=== PATIENT | female | born 1990 | race Two or more races ===

== ENCOUNTER → 2016-04-29 | Outpatient (REF) | payer BC, OTHER ==
[2016-04-29 14:11] LABS: BASO % 0.4 % (0.0-1.0); EOS # 0.4 K/mm3 (0.0-0.50); EOS % 4.1 % (0.0-3.0); LYMPH % 21.4 % (24.0-44.0); MEAN CORPUSCULAR HEMOGLOBIN 26.4 pg (27.0-33.0); MEAN CORPUSCULAR HGB CONC 32.2 g/dl (32.0-36.5); MONO # 0.6 K/mm3 (0.0-0.8); MONO % 6.9 % (0.0-5.0); NEUTROPHILS # 5.9 K/mm3 (1.8-7.7); NEUTROPHILS % 65.9 % (36.0-66.0); RED CELL DISTRIBUTION WIDTH 13.6 % (11.5-14.5)
== END ==
LOC: M LABNEURO 13:38
PROVIDERS: ATTEND Obstetrics & Gynecology
DX: Z34.82 Encounter for supervision of other normal pregnancy, second trimester (principal); Z36 Encounter for antenatal screening of mother; Z3A.00 Weeks of gestation of pregnancy not specified

== ENCOUNTER 2016-07-08 08:33 | Outpatient (CLI) | payer BC, OTHER ==
[~2016-07-08] VITALS: Ht 165.1 cm; Wt 94.0 kg
[2016-07-08 08:50] VITALS: BP 133/85
--- NOTE | 2016-07-08 10:07 | IPN ---
DATE OF SERVICE: 07/08/2016 REASON FOR EVALUATION: Contractions. HISTORY OF PRESENT ILLNESS: This patient is a 25-year-old 4, para 0 who presents at 36 weeks, 6 days estimated gestational age (EGA) with complaints of contractions. She reports having abdominal discomfort earlier in the morning. She was able to rest, went to sleep, woke up and they continued to occur and she presented to labor and delivery at [facility]. She reports some decreased movement. Denies any vaginal bleeding or leakage of fluid. Her course has been uncomplicated. She initiated care in her first trimester and has been appropriate throughout. She receives her care at [facility]. PAST MEDICAL HISTORY: None. PAST SURGICAL HISTORY: Dilatation and curettage. PAST OBSTETRICAL HISTORY: She is a 4. MEDICATIONS: Includes vitamins. ALLERGIES: She has allergies to: 1. PENICILLIN. SOCIAL HISTORY: She denies any alcohol, tobacco or drug use during her . PHYSICAL EXAMINATION: Her vital signs are stable. She is afebrile. She has a category 1 heart rate tracing with contraction on tocometer. GENERAL APPEARANCE: Well appearing, no acute distress. ABDOMEN: Soft, gravid, nontender. CERVICAL EXAM: She was 1 cm dilated, 25% effaced. ASSESSMENT: 1. This patient is a 25-year-old 4, para 0 at 36 weeks, 6 days with contractions, not in active labor. 2. Reassuring status. PLAN: 1. The patient was discharged home with labor precautions and instructed in kick counts. 2. She was instructed to contact her primary sod farmer at a [facility] for further instructions and evaluation.
== END 2016-07-08 09:40 | disposition home or self-care (01) ==
LOC: M LDO 08:33
PROVIDERS: ATTEND Obstetrics & Gynecology
DX: O47.03 False labor before 37 completed weeks of gestation, third trimester (principal); Z3A.36 36 weeks gestation of pregnancy; Z88.0 Allergy status to penicillin

== ENCOUNTER 2016-07-18 12:06 | Outpatient (CLI) | payer BC, OTHER ==
[~2016-07-18] VITALS: Ht 167.6 cm; Wt 94.0 kg
[2016-07-18] MEDS ORDERED: PRENTAB9 PO (12:14)
[2016-07-18] MEDS ORDERED: IRON65TA PO (12:14)
[2016-07-18] MEDS ORDERED: PROMETHAZINE INJ 25 MG/ML VIAL (J2550) IV PRN (14:15)
[2016-07-18] MEDS ORDERED: BUTORPHANOL 2 MG/ML INJ (J0595) IV PRN (14:15)
[2016-07-18] MEDS ORDERED: MORPHINE 10 MG/ML 1ML VIAL IV ONE (17:00)
[2016-07-18] MEDS ORDERED: MORPHINE 10 MG/ML 1ML VIAL SC ONE (17:00)
--- NOTE | 2016-07-19 01:13 | IPN ---
DATE OF SERVICE: 07/18/2016 CHIEF COMPLAINT: Contractions. HISTORY OF PRESENT ILLNESS: Mrs. Walter is a 25-year-old 4, para 0, who presents at 40 weeks 0 days estimated gestational age with an estimated due date (JAY) of 07/18/2016, with complaints of contractions. She reports contractions that started earlier this morning, but have increased in frequency, as well as intensity. She denies any vaginal bleeding, leakage of fluid. Reports active movement. She receives her care at a [facility] and she initiated her care in her first trimester and has been appropriate throughout. PAST MEDICAL HISTORY: None. PAST SURGICAL HISTORY: Dilation and curettage. PAST OBSTETRICAL HISTORY: She is a 4, para 0. MEDICATIONS: Include vitamins. ALLERGIES: She has allergies to PENICILLIN. SOCIAL HISTORY: Denies any alcohol, tobacco, or drug use during her . PHYSICAL EXAMINATION: VITAL SIGNS: Stable. She is afebrile. She has a category 1 heart rate tracing with contractions approximately every 4-5 minutes. GENERAL APPEARANCE: Well appearing, no acute distress. ABDOMEN: Gravid and nontender. CERVICAL EXAM: She is 2 cm dilated, 50% effaced, -2 station. The patient is reexamined approximately 4 hours later with a cervical exam that was unchanged and this was after therapeutic rest with morphine and Phenergan. ASSESSMENT: 1. This patient is a 25-year-old 4, para 0 at 40 weeks 0 days estimated gestational age with contractions, likely late in labor, but not active labor. 2. Reassuring status. PLAN: 1. I have discussed patient returning for reevaluation if contractions continue or water breaks within the next 2-3 hours. She has also been instructed on kick counts. 2. She will followup with her primary senior caregiver at [facility] early next week.
== END 2016-07-18 20:15 | disposition home or self-care (01) ==
LOC: M LDO 12:06
PROVIDERS: ATTEND Obstetrics & Gynecology
DX: O47.1 False labor at or after 37 completed weeks of gestation (principal); Z3A.40 40 weeks gestation of pregnancy; Z88.0 Allergy status to penicillin
CPT/HCPCS: 59025; 96372; 96374; J0595

== ENCOUNTER 2016-07-19 18:54 | Inpatient (IN) | payer BC, OTHER ==
[2016-07-19] VITALS (19 sets, daily range): BP systolic 97–145; BP diastolic 51–95
[~2016-07-19] VITALS: Ht 167.6 cm; Wt 94.0 kg
[~2016-07-19 18:54] MED LIST: IRON65TA PO; PRENTAB9 PO
[2016-07-19 20:10] LABS: MEAN CORPUSCULAR HEMOGLOBIN 22.5 pg (27.0-33.0); MEAN CORPUSCULAR HGB CONC 30.9 g/dl (32.0-36.5); MEAN CORPUSCULAR VOLUME 72.8 fl (80.0-96.0); RED CELL DISTRIBUTION WIDTH 16.9 % (11.5-14.5); WHITE BLOOD COUNT 21.1 K/mm3 (4.0-10.0)
[2016-07-19 20:30] LABS: ALT/SGPT 34 U/L (12-78); AST/SGOT 26 U/L (15-37); BILIRUBIN,TOTAL 0.4 MG/DL (0.2-1.0); CREATININE FOR GFR 0.69 MG/DL (0.55-1.02); GLOMERULAR FILTRATION RATE > 60.0 (>60); URIC ACID 3.6 MG/DL (2.6-6.0)
[2016-07-19] MEDS ORDERED: FENTANYL 2MCG/ML ROPIVACAINE 0.2% IN 0.9% NACL 200ML IVBAG As Ordered ONE (20:38)
[2016-07-19] MEDS ORDERED: FENTANYL/ROPIVACAINE/NACL BAG 200 ML EPIDURAL SCH (21:25)
[2016-07-19] MEDS ORDERED: EPIDURAL/PCA KEYS XX PRN (21:25)
[2016-07-19] MEDS ORDERED: NALOXONE INJ 0.4 MG/1 ML VIAL (J2310) IV PRN (21:25)
[2016-07-19] MEDS ORDERED: ePHEDrine SULFATE 25 MG/5 ML(5MG/ML) SYRINGE IV PRN (21:25)
[2016-07-19] MEDS ORDERED: diphenhydrAMINE INJ 50MG/ML VIAL (J1200) IV PRN (21:25)
[2016-07-19] MEDS ORDERED: EPIDURAL COMMENT XX SCH (21:25)
[2016-07-19] MEDS ORDERED: REFRIGERATOR IV KEYS XX PRN (21:25)
[2016-07-19] MEDS ORDERED: LACTATED RINGER'S 1000 ML IV PRN (21:25)
[2016-07-19] MEDS ORDERED: ONDANSETRON 4MG/2ML VIAL (J2405) IV PRN (21:25)
[2016-07-19] MEDS ORDERED: OXYTOCIN 30 UNITS IN 0.9% NaCl 500ML IV BAG (J2590) As Ordered ONE (23:16)
[2016-07-19] MEDS ORDERED: OXYTOCIN DRIP 30 UNITS in APPROPRIATE DILUENT 1 EA IV SCH (23:51)
[2016-07-20] MEDS ORDERED: ACETAMINOPHEN 500 MG TAB PO PRN
[2016-07-20] MEDS ORDERED: DOCUSATE SODIUM 100 MG CAP PO PRN
[2016-07-20] MEDS ORDERED: MEASLES,MUMPS,RUBELLA VACCINE INJ (MMR-II) (90707) SC SCH
[2016-07-20] MEDS ORDERED: METHYLERGONOVINE MALEATE 0.2 MG TAB PO PRN
[2016-07-20] MEDS ORDERED: DIBUCAINE 1% OINTMENT 30GM TOP PRN
[2016-07-20] MEDS ORDERED: RHOGAM 300 MCG (1500 IU) INJ (J2790) IM SCH
[2016-07-20] MEDS ORDERED: ANUSOL HC CREAM 30GM TOP PRN
[2016-07-20] MEDS ORDERED: MOM 30ML SUSPENSION UDC PO PRN
[2016-07-20] MEDS ORDERED: IBUPROFEN 800 MG TAB PO PRN
--- NOTE | 2016-07-20 00:02 | HPE ---
DATE OF ADMISSION: 07/19/2016 REASON FOR ADMISSION: Labor. HISTORY OF PRESENT ILLNESS: Mrs. Walter is a 25-year-old 4, para 0, who presents at 40 weeks with an estimated due date of 07/18/2016, with complaints of contractions. She reports contractions that started actually yesterday that were irregular, but now have been more frequent and increased in intensity. She denies any vaginal bleeding or leakage of fluid. She reports active movement. She receives her care at [facility] and has initiated her care in her first trimester and has been appropriate throughout. PAST MEDICAL HISTORY: None. PAST SURGICAL HISTORY: Dilation and curettage. PAST OBSTETRICAL HISTORY: She is 4, para 0. MEDICATIONS: Include vitamins. ALLERGIES: She has allergies to PENICILLIN. SOCIAL HISTORY: She denies any alcohol, tobacco, or drug use during her . PHYSICAL EXAMINATION: VITAL SIGNS: Stable. She is afebrile. She has a category 1 heart rate tracing. Contractions approximately every 3-5 minutes on tachometer. GENERAL APPEARANCE: Well appearing, no acute distress. LUNGS: Clear to auscultation bilaterally. CARDIOVASCULAR: Heart is regular rate and rhythm. ABDOMEN: Soft, gravid, nontender. Estimated weight (EFW) 3700 grams. CERVICAL EXAM: She was 5 cm dilated, completely effaced, -2 station. ASSESSMENT: 1. This patient is a 25-year-old 4 who is at 40 weeks 1 day estimated gestational age in active labor. 2. Reassuring status. PLAN: 1. Admit to labor and delivery. CBC, RPR, type and screen. 2. Patient is a good candidate for an epidural. 3. Anticipate spontaneous vaginal delivery.
--- NOTE | 2016-07-20 00:34 | DN ---
DATE OF DELIVERY: 07/19/2016 TIME OF : 2319 GENDER: Male. SCORES: 8 and 9. WEIGHT: 3544 grams or 7 pounds 13 ounces. LACERATIONS: Left labial abrasion. ESTIMATED BLOOD LOSS: 300 mL. ANESTHESIA: Epidural. COUNTS: 5 laparotomy sponges accounted for prior to and after delivery. One sharp removed from the delivery field. DELIVERY NOTE: On 07/19/2016, Mrs. Walter, a 25-year-old 4, now para 1 had a spontaneous vaginal delivery of a liveborn male at 2319, scores 8 and 9, weight was 7 pounds 13 ounces or 3544 grams. Head was delivered occiput anterior (OA) over an intact perineum. There was a loose nuchal cord which was manually reduced followed by delivery of right anterior shoulder, left posterior shoulder and corpus. was handed to mother with a good cry. Cord was then clamped times two and was cut by the father of the baby under my direction. Cord blood was obtained. Placenta was then drained and delivered grossly intact. A premixed bag of 500 mL of normal saline with 30 units of Pitocin was bolused along with uterine massage until the uterus was firm. Upon inspection, the cervix, vagina, and perineum were grossly intact, hemostatic. Mother and baby recovered in stable condition. The couple has decided to name their son
[2016-07-20 02:15] VITALS: BP 124/63
[2016-07-20 05:31] VITALS: BP 114/61
[2016-07-20] MEDS: PRENATAL VITAMIN TAB PO SCH (08:11)
[2016-07-20 18:06] VITALS: BP 135/84
[2016-07-21 06:10] VITALS: BP 137/87
[2016-07-21] MEDS ORDERED: ACET50TA PO (07:17)
[2016-07-21] MEDS ORDERED: IBUP-1114 PO (07:17)
[2016-07-21] MEDS: PRENATAL VITAMIN TAB PO SCH (09:00)
== END 2016-07-21 10:30 | disposition home or self-care (01) | DRG 560 ==
LOC: M LDO 18:54 → M LDI 19:43 → M OBS 07-20 01:14
PROVIDERS: ADMIT Obstetrics & Gynecology; ATTEND Obstetrics & Gynecology
PROC: 10E0XZZ Delivery of Products of Conception, External Approach (ICD-10-PCS; principal; 2016-07-19)
DX: O48.0 Post-term pregnancy (principal); Z37.0 Single live birth; Z3A.40 40 weeks gestation of pregnancy

== ENCOUNTER → 2016-09-28 | Outpatient (REF) | payer OTHER ==
[~2016-09-28] MED LIST changes: +ACET50TA PO; +IBUP-1114 PO
[2016-09-28 12:43] LABS: MEAN CORPUSCULAR HEMOGLOBIN 24.6 pg (27.0-33.0); MEAN CORPUSCULAR HGB CONC 31.2 g/dl (32.0-36.5); RED CELL DISTRIBUTION WIDTH 17.8 % (11.5-14.5); WHITE BLOOD COUNT 7.6 K/mm3 (4.0-10.0)
[2016-09-28 13:26] LABS: ALBUMIN 3.5 GM/DL (3.2-5.2); ALBUMIN/GLOBULIN RATIO 1.06 (1.00-1.93); ALKALINE PHOSPHATASE 91 U/L (45-117); ALT/SGPT 26 U/L (12-78); ANION GAP 7 MEQ/L (8-16); AST/SGOT 15 U/L (15-37); BILIRUBIN,TOTAL 0.3 MG/DL (0.2-1.0); BLOOD UREA NITROGEN 8 MG/DL (7-18); CALCIUM LEVEL 8.5 MG/DL (8.5-10.1); CARBON DIOXIDE LEVEL 23 MEQ/L (21-32); CHLORIDE LEVEL 108 MEQ/L (98-107); CHOLESTEROL LEVEL 125 MG/DL (<200); CREATININE FOR GFR 0.81 MG/DL (0.55-1.02); GLOMERULAR FILTRATION RATE > 60.0 (>60); GLUCOSE, FASTING 81 MG/DL (70-105); SODIUM LEVEL 138 MEQ/L (136-145); TOTAL PROTEIN 6.8 GM/DL (6.4-8.2); TRIGLYCERIDES LEVEL 51 MG/DL (<150)
== END ==
LOC: M LAB REF 11:49
PROVIDERS: ATTEND Family Medicine
DX: D64.9 Anemia, unspecified (principal); E03.9 Hypothyroidism, unspecified

== ENCOUNTER → 2016-10-30 | Outpatient (REF) | payer BC, OTHER, SELFPAY | LOC: M LAB REF 15:41 | PROVIDERS: ATTEND Family Medicine | DX: Z92.29 Personal history of other drug therapy (principal) ==

== ENCOUNTER → 2017-04-30 | Outpatient (REF) | payer OTHER ==
[2017-04-30 17:18] LABS: CHLAMYDIA DNA AMPLIFICATION NEGATIVE (NEGATIVE); GC DNA AMPLIFICATION NEGATIVE (NEGATIVE)
[2017-05-03 12:22] LABS: HIV 1&2 SCREEN CENTAUR NEGATIVE (NEGATIVE)
== END ==
LOC: M SFHCPLAZ 15:07
DX: Z11.3 Encounter for screening for infections with a predominantly sexual mode of transmission (principal)

== ENCOUNTER → 2018-04-12 | Outpatient (REF) | payer OTHER ==
[~2018-04-12] MED LIST changes: -ACET50TA PO; +MAPA500T2 PO
[2018-04-12 18:40] LABS: HEMATOCRIT 40.1 % (36.0-47.0); HEMOGLOBIN 12.9 g/dl (12.0-15.5); MEAN CORPUSCULAR HEMOGLOBIN 27.7 pg (27.0-33.0); MEAN CORPUSCULAR HGB CONC 32.2 g/dl (32.0-36.5); MEAN CORPUSCULAR VOLUME 86.2 fl (80.0-96.0); PLATELET COUNT, AUTOMATED 322 10^3/uL (150-450); RED BLOOD COUNT 4.65 10^6/uL (4.00-5.40); WHITE BLOOD COUNT 9.4 10^3/uL (4.0-10.0)
[2018-04-12 19:00] LABS: ALBUMIN 4.4 GM/DL (3.2-5.2); ALT/SGPT 23 U/L (12-78); BILIRUBIN,TOTAL 0.6 MG/DL (0.2-1.0); BLOOD UREA NITROGEN 7 MG/DL (7-18); CALCIUM LEVEL 8.9 MG/DL (8.5-10.1); CARBON DIOXIDE LEVEL 24 MEQ/L (21-32); CHLORIDE LEVEL 107 MEQ/L (98-107); CREATININE FOR GFR 0.93 MG/DL (0.55-1.30); FERRITIN 6 NG/ML (8-252); GLOMERULAR FILTRATION RATE > 60.0 (>60); GLUCOSE, FASTING 82 MG/DL (70-100); IRON (FE) 54 UG/DL (50-170); LIPASE 171 U/L (73-393); PERCENT SATURATION 12.9 % (13.2-45.0); POTASSIUM SERUM 4.4 MEQ/L (3.5-5.1); SODIUM LEVEL 141 MEQ/L (136-145); TOTAL IRON BINDING CAPACITY 417 UG/DL (250-450); TOTAL PROTEIN 7.5 GM/DL (6.4-8.2)
[2018-04-12 19:36] LABS: CHLAMYDIA DNA AMPLIFICATION NEGATIVE (NEGATIVE); GC DNA AMPLIFICATION NEGATIVE (NEGATIVE)
[2018-04-12 21:09] LABS: CHLAMYDIA DNA AMPLIFICATION NEGATIVE (NEGATIVE); GC DNA AMPLIFICATION NEGATIVE (NEGATIVE)
[2018-04-13 10:50] LABS: HIV 1&2 SCREEN CENTAUR NEGATIVE (NEGATIVE)
== END ==
LOC: M SFHCPLAZ 15:29
PROVIDERS: ATTEND Family Medicine
DX: D50.9 Iron deficiency anemia, unspecified (principal); R19.7 Diarrhea, unspecified; Z11.3 Encounter for screening for infections with a predominantly sexual mode of transmission; Z12.4 Encounter for screening for malignant neoplasm of cervix

== ENCOUNTER → 2018-04-12 | Outpatient (REF) | payer OTHER | LOC: M SFHCPLAZ 18:57 | PROVIDERS: ATTEND Family Medicine | DX: Z12.4 Encounter for screening for malignant neoplasm of cervix (principal) ==

== ENCOUNTER 2019-01-17 14:35 | Emergency (ER) | payer OTHER, SELFPAY ==
[~2019-01-17] VITALS: Ht 167.6 cm; Wt 69.1 kg
[2019-01-17 14:36] VITALS: BP 126/83
[2019-01-17] MEDS ORDERED: AZITHROMYCIN 250 MG TAB PO ONE (15:00)
[2019-01-17] MEDS ORDERED: LIDOCAINE 1% SDV 5 ML VIAL DILUENT ONE (15:00)
[2019-01-17] MEDS ORDERED: cefTRIAXone SOD 250 MG VIAL (J0696) IM ONE (15:00)
== END 2019-01-17 15:45 | disposition home or self-care (01) ==
LOC: M ED 14:35
DX: Z20.2 Contact with and (suspected) exposure to infections with a predominantly sexual mode of transmission (principal); Z86.19 Personal history of other infectious and parasitic diseases
CPT/HCPCS: 96372; 99283; J0696

== ENCOUNTER 2019-05-22 12:16 | Inpatient (IN) | payer OTHER, SELFPAY ==
[~2019-05-22] VITALS: Ht 167.6 cm; Wt 60.1 kg
[~2019-05-22 12:16] MED LIST changes: +FOLIC ACID 1 MG TAB PO SCH; +MULTIVITAMINS/MINERALS THERAP 1 TAB PO SCH
[2019-05-22] MEDS ORDERED: NS 1,000 ML IV ONE (13:00)
[2019-05-22 13:37] LABS: BASO # 0.1 10^3/uL (0.0-0.2); BASO % 1.7 % (0.0-1.0); EOS # 0.1 10^3/uL (0.0-0.5); EOS % 1.2 % (0.0-3.0); HEMATOCRIT 36.6 % (36.0-47.0); HEMOGLOBIN 11.8 g/dl (12.0-15.5); LYMPH # 2.7 10^3/uL (1.5-5.0); LYMPH % 34.1 % (24.0-44.0); MEAN CORPUSCULAR HEMOGLOBIN 25.9 pg (27.0-33.0); MEAN CORPUSCULAR HGB CONC 32.2 g/dl (32.0-36.5); MEAN CORPUSCULAR VOLUME 80.3 fl (80.0-96.0); MONO # 0.9 10^3/uL (0.0-0.8); MONO % 11.2 % (0.0-5.0); NEUTROPHILS # 4.1 10^3/uL (1.5-8.5); NEUTROPHILS % 51.6 % (36.0-66.0); PLATELET COUNT, AUTOMATED 395 10^3/uL (150-450); RED BLOOD COUNT 4.56 10^6/uL (4.00-5.40)
[2019-05-22 14:02] LABS: HCG, SERUM QUALITATIVE NEGATIVE (NEGATIVE)
[2019-05-22 14:04] LABS: ALBUMIN 4.4 GM/DL (3.2-5.2); ALT/SGPT 27 U/L (12-78); BILIRUBIN,DIRECT 0.2 MG/DL (0.0-0.2); BILIRUBIN,TOTAL 0.6 MG/DL (0.2-1.0); BLOOD UREA NITROGEN 12 MG/DL (7-18); CALCIUM LEVEL 9.4 MG/DL (8.5-10.1); CARBON DIOXIDE LEVEL 23 MEQ/L (21-32); CHLORIDE LEVEL 105 MEQ/L (98-107); CREATININE FOR GFR 1.05 MG/DL (0.55-1.30); GLOMERULAR FILTRATION RATE > 60.0 (>60); GLUCOSE, FASTING 77 MG/DL (70-100); MAGNESIUM LEVEL 2.2 MG/DL (1.8-2.4); PHOSPHORUS LEVEL 4.4 MG/DL (2.5-4.9); POTASSIUM SERUM 3.9 MEQ/L (3.5-5.1); SODIUM LEVEL 137 MEQ/L (136-145); TOTAL PROTEIN 8.1 GM/DL (6.4-8.2)
--- NOTE | 2019-05-22 14:27 | REP ---
Portable chest, 02:14 p.m., single frontal view: Comparison is 06/07/2012. Lung newberry are hyperinflated but otherwise clear. Cardiac size is normal. The ady, mediastinum, skeletal structures are unremarkable. Impression: Hyperinflation, otherwise negative single frontal view of the chest. Electronically Signed by Flavio Hernández MD 05/22/2019 02:20 P
--- NOTE | 2019-05-22 14:33 | REP ---
CT of the brain without IV contrast: There are no comparisons. I suspect a small right frontal scalp contusion. This should be confirmed clinically. There is no subdural or epidural hematoma. There is no intraparenchymal or subarachnoid hemorrhage. There is no edema, mass effect or midline shift. Ventricles are normal size. The visualized paranasal sinuses and mastoid air cells are clear. Impression: Probable small right frontal scalp contusion. Otherwise, essentially negative CT study of the brain. Electronically Signed by Flavio Hernández MD 05/22/2019 02:24 P
--- NOTE | 2019-05-22 14:36 | REP ---
CT of the cervical spine without IV contrast: Vertebral body heights, interspacing alignment are normal. The facets are normally aligned. The prevertebral soft tissues are unremarkable. The skull base, C1-C2 are unremarkable. There are no posterior element fractures. Impression: There is no fracture or listhesis. Electronically Signed by Flavio Hernández MD 05/22/2019 02:27 P
[2019-05-22 15:03] LABS: AMPHETAMINES LEVEL URINE POSITIVE (NEGATIVE); BARBITURATES URINE NEGATIVE (NEGATIVE); BENZODIAZEPINES URINE NEGATIVE (NEGATIVE); CANNABINOIDS URINE POSITIVE (NEGATIVE); COCAINE METABOLITE URINE POSITIVE (NEGATIVE); METHADONE URINE NEGATIVE (NEGATIVE); OPIATES URINE NEGATIVE (NEGATIVE); PHENCYCLIDINE URINE NEGATIVE (NEGATIVE)
[2019-05-22] MEDS ORDERED: levETIRAcetam INJection 1,000 MG in D5W 100 ML IV ONE (15:30)
[2019-05-22] MEDS ORDERED: THIAMINE 100 MG TAB PO SCH (19:00)
[2019-05-22] MEDS ORDERED: LORazepam 2 MG TAB PO PRN (19:00)
--- NOTE | 2019-05-22 19:19 | HPEPDOC ---
[facility] Medical History & Physical Date of Admission May 22, 2019 Date of Service: May 22, 2019 Attending Physician: LAURA BOOTH MD History and Physical CHIEF COMPLAINT: seizures HISTORY OF PRESENT ILLNESS: Zeus Walter is a 28-year-old female with history of multi-drug abuse who presents with several seizures today witnessed by both family and EMS. Per the patient, she has been having seizures off-and-on since 2017, which she attributes to either hereditary disorder or her drug use. She reports that she usually has an aura before she has a seizure and does not remember much during the event, but usually wakes up confused afterwards. She does lose control of her bladder during these events. Most recently, on Wednesday05/20/2019 she was out with her friends and she admits to drinking almost 1 handle of tequila, snorting cocaine, and smoking excessive amounts of marijuana and crack. She states she has not slept in 72 hours. She is also not eaten this timeframe. In the ED, she is stabilized and she had been given 1000 mg of IV Keppra. PAST MEDICAL HISTORY: 1. Iron deficiency anemia 2. Anxiety/depression 3. HSV 2 4. Abnormal Pap smear in 2008 ASCUS PAST SURGICAL HISTORY: 1. D&C SOCIAL HISTORY: Current 1 pack per day smoker, smokes marijuana, snorts Cocaine, smokes crack FAMILY HISTORY: Remote family history of diabetes and sleep apnea in addition to questionable seizure disorders ALLERGIES: Please see below. REVIEW OF SYSTEMS: CONSTITUTIONAL: Feels well. No fever or chills HEENT: denies vision changes, no sinus problems, denies any trouble swallowing CARDIOVASCULAR: no palpitations RESPIRATORY: Denies any shortness of breath GENITOURINARY: No dysuria MUSCULOSKELETAL: Denies any joint/muscle pain GASTROINTESTINAL: Denies abdominal pain, no nausea/vomiting/diarrhea SKIN: No new rashes or lesions NEUROLOGICAL: No loss of sensation PSYCHIATRIC: Reports normal mood, no delusions or hallucinations ENDOCRINE: No hot/cold intolerance HEMATOLOGIC/LYMPHATIC: No easy bruising, no lumps/bumps ALLERGIC/IMMUNOLOGIC: No sinus symptoms HOME MEDICATIONS: Please see below. PHYSICAL EXAMINATION: VITAL SIGNS: Please see below. GENERAL APPEARANCE: Very talkative, speaking quickly changing subjects quite often, but pleasant and in no acute distress HEENT: EOMI, PERRLA, neck is supple with no thyromegaly or lymphadenopathy RESPIRATORY: Lungs are clear to auscultation bilaterally with no adventitious breath sounds appreciated CARDIOVASCULAR: no JVD, RRR,no murmurs/rubs/gallops ABDOMEN: Soft, nontender to palpation in all four quadrants, no masses/organomegaly EXTREMITIES: no clubbing, cyanosis or edema noted. There is an area of irritation on her right antecubital fossa from her IV NEUROLOGICAL: No obvious focal deficits PSYCHIATRIC: very talkative and tangential with pressured speech Skin: No rashes or ulcers. Multiple tattoos LN: No significant cervical or inguinal lymphadenopathy LABORATORY DATA: See below. IMAGING: CT HEAD: CT of the brain without IV contrast: There are no comparisons. I suspect a small right frontal scalp contusion. This should be confirmed clinically. There is no subdural or epidural hematoma. There is no intraparenchymal or subarachnoid hemorrhage. There is no edema, mass effect or midline shift. Ventricles are normal size. The visualized paranasal sinuses and mastoid air cells are clear. Impression: Probable small right frontal scalp contusion. Otherwise, essentially negative CT study of the brain. CXR: Portable chest, 02:14 p.m., single frontal view: Comparison is 06/07/2012. Lung newberry are hyperinflated but otherwise clear. Cardiac size is normal. The ady, mediastinum, skeletal structures are unremarkable. Impression: Hyperinflation, otherwise negative single frontal view of the chest. CERVICAL SPINE CT: CT of the cervical spine without IV contrast: Vertebral body heights, interspacing alignment are normal. The facets are normally aligned. The prevertebral soft tissues are unremarkable. The skull base, C1-C2 are unremarkable. There are no posterior element fractures. Impression: There is no fracture or listhesis. MICROBIOLOGY: Please see below. ASSESSMENT: This is a 28-year-old female with history of anxiety and depression who presents after several seizures in the setting of multi drug abuse. . She will be admitted to the medical surgical floor for close observation and seizure precautions. PLAN: 1. Seizures, likely secondary to drug use: -Patient was found to be positive on tox screen for amphetamines, cocaine, cannabinoids -Seizure precautions in place -S/p 1000 mg IV Keppra in ED. The patient will be resumed on 750 mg twice daily. -1L IVF NS in ED -Inpatient EEG ordered to r/o seizure disorder -Continuous telemetry in setting of possible acute intoxication with amphetamines and cocaine 2. Alcohol abuse: -[facility] protocol in place -Thiamine, Multivitamin, Folic acid 3. Tobacco abuse: -Nicotene patches while in hospital Dispo: Pending clinical improvement. Seizure precautions. Vital Signs Vital Signs Date Time Temp Pulse Resp B/P (MAP) Pulse Ox O2 Delivery O2 Flow Rate FiO2 05/22/19 18:30 99 18 105/63 (77) 100 Room Air 05/22/19 12:36 97.9 Laboratory Data Labs 24H Laboratory Tests 2 05/22/19 13:21: Immature Granulocyte % (Auto) 0.2, Neutrophils (%) (Auto) 51.6, Lymphocytes (%) (Auto) 34.1, Monocytes (%) (Auto) 11.2H, Eosinophils (%) (Auto) 1.2, Basophils (%) (Auto) 1.7H, Neutrophils # (Auto) 4.1, Lymphocytes # (Auto) 2.7, Monocytes # (Auto) 0.9H, Eosinophils # (Auto) 0.1, Basophils # (Auto) 0.1, Nucleated Red Blood Cells % (auto) 0.0, Anion Gap 9, Glomerular Filtration Rate > 60.0, Calcium Level 9.4, Phosphorus Level 4.4, Magnesium Level 2.2, Total Bilirubin 0.6, Direct Bilirubin 0.2, Aspartate Amino Transf (AST/SGOT) 31, Alanine Aminotransferase (ALT/SGPT) 27, Alkaline Phosphatase 73, Total Protein 8.1, Albumin 4.4, Albumin/Globulin Ratio 1.19, Human Chorionic Gonadotropin, Qual NEGATIVE 05/22/19 14:25: Urine Color YELLOW, Urine Appearance CLOUDYH, Urine pH 5.0, Urine Specific [place]agon 1.028, Urine Protein 1+H, Urine Glucose (UA) NEGATIVE, Urine Ketones TRACEH, Urine Blood NEGATIVE, Urine Nitrite NEGATIVE, Urine Bilirubin NEGATIVE, Urine Urobilinogen 0.2, Urine Leukocyte Esterase TRACEH, Urine WBC (Auto) 4H, Urine RBC (Auto) 2, Urine Hyaline Casts (Auto) 0, Urine Bacteria (Auto) 2+H, Urine Squamous Epithelial Cells 9, Urine Mucus (Auto) SMALL, Urine Sperm (Auto) , Urine Opiates Screen NEGATIVE, Urine Methadone Screen NEGATIVE, Urine Barbiturates Screen NEGATIVE, Urine Phencyclidine Screen NEGATIVE, Urine Amphetamines Screen POSITIVEH, Urine Benzodiazepines Screen NEGATIVE, Urine Cocaine Metabolite Screen POSITIVEH, Urine Cannabinoids Screen POSITIVEH CBC/BMP Laboratory Tests 05/22/19 13:21 Microbiology Microbiology 05/22/19 Urine Culture, Received Pending Home Medications No Active Prescriptions or Reported Meds Allergies Coded Allergies: Penicillins (Verified Allergy, Unknown, 05/22/19) A-FIB/CHADSVASC A-FIB History Current/History of A-Fib/PAF?: No GME ATTESTATION GME ATTESTATION My faculty preceptor for this patient encounter was physically present during the encounter and was fully available. All aspects of the patient interview, examination, medical decision making process, and medical care plan development were reviewed and approved by the faculty preceptor. The faculty preceptor is aware and concurs with the plan as stated in the body of this note and will attest to such by his/her cosignature. ATTENDING NOTE Patient was seen and examined by me this morning with the residents. Agree with the above assessment and plan VICKY GONZALEZ MD May 22, 2019 19:19 LAURA BOOTH MD May 25, 2019 12:53
[2019-05-22 19:29] VITALS: BP 106/68
--- NOTE | 2019-05-22 20:42 | ECGEPIP ---
[facility] - ED Test Date: 2019-05-22 Pat Name: STEPHAN MORENO Department: Room: - Gender: Female Glass Glazier: jennifer : 1990 Requested By: GLORY Horton Order Number: [id number] Reading MD: Vickie Rodriguez Measurements Intervals [place] Rate: 81 P: 80 MT: 159 QRS: 73 QRSD: 93 T: 58 QT: 395 QTc: 461 Interpretive Statements SINUS RHYTHM WITH MARKED SINUS ARRHYTHMIA PROLONGED QTC NO PRIOR Electronically Signed on 05-22-2019 20:41:48 EDT by Vickie Rodriguez
[2019-05-23] MEDS ORDERED: levETIRAcetam 250MG TABLET (KEPPRA) PO SCH (06:00)
[2019-05-23] MEDS ORDERED: NICOTINE 21MG/24HR 1 EA TRANSDERMAL TD SCH (09:00)
--- NOTE | 2019-05-24 20:37 | ECGEPIP ---
[facility] - ED Test Date: 2019-05-22 Pat Name: STEPHAN MORENO Department: Room: [place] [address] Gender: Female Bullard Operator: jennifer : 1990 Requested By: GLORY Horton Order Number: [id number] Reading MD: Vickie Rodriguez Measurements Intervals [place] Rate: 79 P: [place]: 0 QRS: 62 QRSD: 91 T: 42 QT: 392 QTc: 451 Interpretive Statements SINUS RHYTHM TO ECTOPIC ATRIAL ABNORMAL RHYTHM ECG Electronically Signed on 05-24-2019 20:37:22 EDT by Vickie Rodriguez
--- NOTE | 2019-06-22 20:40 | IPNPDOC ---
Date Seen The patient was seen on 05/22/19. Progress Note PROGRESS NOTE: DATE: 05/22/2019 REASON FOR VISIT: Seizure 2/2 multidrug use ADMITTING DIAGNOSIS: Seizure The patient was not seen and examined a second time that day because she chose to leave AMA. All risks were explained to her, including worsening medical condition, but she chose to leave the hospital. GME ATTESTATION GME ATTESTATION My faculty preceptor for this patient encounter was physically present during the encounter and was fully available. All aspects of the patient interview, examination, medical decision making process, and medical care plan development were reviewed and approved by the faculty preceptor. The faculty preceptor is aware and concurs with the plan as stated in the body of this note and will attest to such by his/her cosignature. VICKY GONZALEZ MD Jun 22, 2019 20:39
== END 2019-05-22 20:22 | disposition left against medical advice (07) | DRG 770 ==
LOC: M ED 12:16 → M ED INP 18:35
PROVIDERS: ADMIT Internal Medicine; ATTEND Internal Medicine
DX: F15.188 Other stimulant abuse with other stimulant-induced disorder (principal); G40.89 Other seizures; F10.10 Alcohol abuse, uncomplicated; D50.9 Iron deficiency anemia, unspecified; F41.8 Other specified anxiety disorders; F17.200 Nicotine dependence, unspecified, uncomplicated; Z88.0 Allergy status to penicillin; Z91.19 Patient's noncompliance with other medical treatment and regimen; Z53.09 Procedure and treatment not carried out because of other contraindication

== ENCOUNTER 2019-06-09 14:30 | Inpatient (IN) | payer SELFPAY ==
[~2019-06-09] VITALS: Ht 167.6 cm; Wt 64.6 kg
[2019-06-09] MEDS: NICOTINE 21MG/24HR 1 EA TRANSDERMAL TD SCH (09:00)
[~2019-06-09 14:30] MED LIST changes: -FOLIC ACID 1 MG TAB PO SCH; -MULTIVITAMINS/MINERALS THERAP 1 TAB PO SCH
[2019-06-09] MEDS ORDERED: LORazepam 2 MG TAB PO ONE ×2 (15:00→18:15)
[2019-06-09] MEDS ORDERED: NICOTINE 21MG/24HR 1 EA TRANSDERMAL TD ONE (18:15)
[2019-06-09 19:17] LABS: HEMATOCRIT 39.4 % (36.0-47.0); HEMOGLOBIN 12.1 g/dl (12.0-15.5); MEAN CORPUSCULAR HEMOGLOBIN 25.6 pg (27.0-33.0); MEAN CORPUSCULAR HGB CONC 30.7 g/dl (32.0-36.5); MEAN CORPUSCULAR VOLUME 83.3 fl (80.0-96.0); PLATELET COUNT, AUTOMATED 402 10^3/uL (150-450); RED BLOOD COUNT 4.73 10^6/uL (4.00-5.40); WHITE BLOOD COUNT 10.6 10^3/uL (4.0-10.0)
[2019-06-09 19:48] LABS: AMPHETAMINES LEVEL URINE POSITIVE (NEGATIVE); BARBITURATES URINE NEGATIVE (NEGATIVE); BENZODIAZEPINES URINE POSITIVE (NEGATIVE); CANNABINOIDS URINE POSITIVE (NEGATIVE); COCAINE METABOLITE URINE POSITIVE (NEGATIVE); METHADONE URINE NEGATIVE (NEGATIVE); OPIATES URINE NEGATIVE (NEGATIVE); PHENCYCLIDINE URINE NEGATIVE (NEGATIVE)
[2019-06-09 19:49] LABS: HCG, SERUM QUALITATIVE NEGATIVE (NEGATIVE)
[2019-06-09 19:51] LABS: ACETAMINOPHEN LEVEL < 2.0 UG/ML (10.0-30.0); ALBUMIN 4.4 GM/DL (3.2-5.2); ALT/SGPT 39 U/L (12-78); BILIRUBIN,DIRECT 0.1 MG/DL (0.0-0.2); BILIRUBIN,TOTAL 0.4 MG/DL (0.2-1.0); BLOOD UREA NITROGEN 15 MG/DL (7-18); CALCIUM LEVEL 9.4 MG/DL (8.5-10.1); CARBON DIOXIDE LEVEL 29 MEQ/L (21-32); CHLORIDE LEVEL 102 MEQ/L (98-107); CREATININE FOR GFR 0.98 MG/DL (0.55-1.30); ETHYL ALCOHOL (ETHANOL) < 0.003 % (0.000-0.010); GLOMERULAR FILTRATION RATE > 60.0 (>60); GLUCOSE, FASTING 76 MG/DL (70-100); POTASSIUM SERUM 4.2 MEQ/L (3.5-5.1); SALICYLATE LEVEL < 1.7 MG/DL (5.0-30.0); SODIUM LEVEL 136 MEQ/L (136-145); TOTAL PROTEIN 8.3 GM/DL (6.4-8.2)
[2019-06-09] MEDS ORDERED: OLANZapine ORAL DISINTEGRATING TAB 5MG PO PRN (20:45)
[2019-06-09] MEDS ORDERED: MAALOX 30 ML SUSP *UDC PO PRN (20:45)
[2019-06-09] MEDS ORDERED: MOM 30ML SUSPENSION UDC PO PRN (20:45)
[2019-06-09] MEDS ORDERED: ACETAMINOPHEN TAB 650MG DOSE (2X325MG) PO PRN (20:45)
[2019-06-09] MEDS: QUEtiapine FUMARATE 50 MG TAB PO PRN (21:58)
[2019-06-09 23:03] VITALS: BP 122/84
[2019-06-09] MEDS: LORazepam 0.5 MG TAB PO SCH ×2 (23:37→23:44)
[2019-06-10] MEDS: NICOTINE 21MG/24HR 1 EA TRANSDERMAL TD SCH (09:00)
[2019-06-10] MEDS: LORazepam 0.5 MG TAB PO SCH (10:02)
--- NOTE | 2019-06-10 10:26 | HPEPDOC ---
General Date of Admission Jun 09, 2019 at 20:38 Date of Service: Jun 10, 2019 Chief Complaint The patient is a 28-year-old female who presented to the emergency room after reporting suicidal ideation while intoxicated History of Present Illness Patient is a 28-year-old female with past medical history of seizure disorder, iron deficiency anemia, anxiety and depression who presented to the emergency room after reporting suicidal ideation while intoxicated. Patient had reported that 2 days prior. She had taken was reported to be [place] and had a crazy trip. Patient was subsequently coming down from her high and had reported suicidal ideation to her family who had called EMS for further e valuation and support. Patient was admitted to the inpatient mental health unit under the care of psychiatry. Hospital services called for medical screening evaluation. Currently patient denies any headache, nausea, vomiting, chest pain, shortness of breath, palpitations, cough, pain, diarrhea, constipation, urinary discomfort or any recent fevers or chills. Patient reports her appetite is normal and has reported a 30 pound weight loss since November. Patient attributes this to her difficulty getting over her grandmothers passing. Home Medications No Active Prescriptions or Reported Meds Allergies Coded Allergies: Penicillins (Verified Allergy, Unknown, 05/22/19) Past Medical History Medical History Seizure disorder, iron deficiency anemia, anxiety and depression Surgical History Dilation and curettage Family History - Father unknown past medical history; reported that his family has a history of diabetes - Maternal grandmother with a history of breast cancer and pancreatic cancer Social History - Denies the use of alcohol, patient is a smoker of 15 years at 1 PPD. She does report the use of marijuana, cocaine, methamphetamine - Denies recent travel or sick contacts Review of Systems Other systems 10 point review of systems complete, all negative otherwise stated in HPI Vital Signs - Vitals: BP 122/84, HR 62, RR 14, Sat 98%RA, Temp 98.6F - General: Lying in bed, Speaking in full sentences, AAOx3 - HEENT: NC, AT, PERRLA - CVS: RRR, +S1S2 - Lungs: Fair air entry bilaterally, No appreciable wheezing / rales / rhonchi - Abdomen: Soft, Non-distended, Non-tender - Extremities: No lower extremity edema, No calf tenderness - Neuro: No focal motor or sensory deficit - Skin: No visible rashes Laboratory Data Labs 24H Laboratory Tests 2 06/09/19 19:01: Nucleated Red Blood Cells % (auto) 0.0, Anion Gap 5L, Glomerular Filtration Rate > 60.0, Calcium Level 9.4, Total Bilirubin 0.4, Direct Bilirubin 0.1, Aspartate Amino Transf (AST/SGOT) 59H, Alanine Aminotransferase (ALT/SGPT) 39, Alkaline Phosphatase 77, Total Protein 8.3H, Albumin 4.4, Albumin/Globulin Ratio 1.13, Thyroid Stimulating Hormone (TSH) 1.580, Human Chorionic Gonadotropin, Qual NEGATIVE, Salicylates Level < 1.7L, Acetaminophen Level < 2.0L, Ethyl Alcohol Level < 0.003 06/09/19 19:11: Urine Opiates Screen NEGATIVE, Urine Methadone Screen NEGATIVE, Urine Barbiturates Screen NEGATIVE, Urine Phencyclidine Screen NEGATIVE, Urine Amphetamines Screen POSITIVEH, Urine Benzodiazepines Screen POSITIVEH, Urine Cocaine Metabolite Screen POSITIVEH, Urine Cannabinoids Screen POSITIVEH CBC/BMP Laboratory Tests 06/09/19 19:01 Plan / VTE VTE Prophylaxis Ordered?: Yes Plan Plan Suicidal ideation while intoxicated - s/p Acute toxic encephalopathy - Currently, patient had presented with suicidal ideation while she was coming down from her intoxication - Currently is being managed by psychiatry Seizure disorder - Patient reports seizures were diagnosed in 2017 - Reported last seizure was 1 day prior; unconfirmed - Will resume Keppra 750 mg PO BID Iron deficiency anemia Anxiety / Depression - Currently on Lorazepam / Olanzapine / Quetiapine DVT prophylaxis - Will c/w early ambulation Female minesweeping officer was present throughout the duration of this history and physical examination Thank you for this consult; please re-consult as needed NILE GUTIERREZ MD Jun 10, 2019 10:26
[2019-06-10] MEDS: levETIRAcetam 250MG TABLET (KEPPRA) PO SCH ×2 (14:15→21:37)
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
[2019-06-10] MEDS ORDERED: LORazepam 0.5 MG TAB PO PRN (14:45)
[2019-06-10 15:39] VITALS: BP 121/65
[2019-06-10] MEDS: ARIPiprazole 2 MG TAB PO SCH (16:03)
[2019-06-10] MEDS: QUEtiapine FUMARATE 50 MG TAB PO PRN (21:37)
[2019-06-11 06:32] VITALS: BP 107/58
[2019-06-11] MEDS: ARIPiprazole 2 MG TAB PO SCH (10:38)
[2019-06-11] MEDS: levETIRAcetam 250MG TABLET (KEPPRA) PO SCH ×2 (10:39→20:03)
[2019-06-11] MEDS: NICOTINE 21MG/24HR 1 EA TRANSDERMAL TD SCH (10:44)
[2019-06-11] MEDS ORDERED: LORazepam 0.5 MG TAB PO PRN (13:15)
--- NOTE | 2019-06-11 13:17 | MHIPNPDOC ---
[facility] Progress Note Progress Note DATE OF SERVICE: 06/11/19 HISTORY: As per previous notes: "Patient is a 28 -year-old , female, who, according to ED report: "Reason for Referral : Brother in law brought pt to hospital after pt. had called him because she was not feeling well after she had done 'wesley'. Pt. had made suicidal statement. Chief Complaint Pt. states that this morning she did 'wesley', felt ill and laid on the ground and called brother in law to pick her up. She states that he then took her to her sisters house where her family talked to her and then brought her to ER. She is a bit vague about exact circumstances of this morning, states she sometimes gets very emotional after using and she was feeling very emotional this morning. Pt. very vague about suicidal ideation, states she currently does not feel suicidal but shrugs her shoulders when asked if she may harm herself if she feels that way again. Pt. reports she has been using wesley elsi past several days along with marijuana. She reports she has used cocaine, crack and ice. Pt. reports she has been to rehab at [facility] about 5 years ago, [facility] y[facility] ago. She denies current out-pt services. Pt. reports she has been prescribed Ambien and Klonopin in past by PCP. Pt. did give permission for this creative services writer to call her mother. Mother reports that after pt brother in law picked her up this morning, he roman her to her [facility] and family spoke with pt about getting help. Mother states that pt told her and her sister that this morning she tried to kill herself by doing wesley and attemping to do heroin but it didn't work, also stating that she didn't want to live anymore. Mother states that pt does not live with her sister as pt stated. Mother states she has ot been at sisters for past wek and they do not "know where she has been staying.." VITAL SIGNS: See below. NEW TEST RESULTS: See below CURRENT MEDICATIONS: See below. MENTAL STATUS EXAMINATION: General Appearance: well groomed, appears stated age, hospital scubs/clothing Build: average Demeanor: average Eye Contact: average Activity: average Behavior: cooperative, pleasant Speech: clear, spontaneous, normal volume, reg/rate,rhythm,volume Mood: Anxious, she says because she wants to leave the hospital and go home Mood "I feel fine" Affect: appropriate, congruent, anxious Thought Process: logical/linear, depressed Thought Content (Delusions): none reported Thought Content (Other): guilty thoughts, depressive/anxious thoughts. Denies SI/HI, denies thought delusions Thought Content (Aggressive): none reported Perception (Hallucinations): none reported Perception (Other): denies at this time. Cognition (Impairment of): none reported Cognition(Intelligence Est.): average Oriented: Awake, Alert, Oriented times three Insight: fair Judgment: Poor Psychosis: Denies Diagnoses 1. Bipolar disorder, 2. Post Traumatic Stress Disorder 3. H/O ADHD ( never been treated) ASSESSMENT: a little sleepy, she's pleasant, cooperative, she has improved, she is not as sensitive/depressed as she was yesterday, I will increase her Abilify dose to 5 mgs PO daily and will decrease her Ativan. She;s not interested in Inpatient Rehab, she says she can do Outpatient Rehab and Outpatient Psychiatric Treatment. MANAGEMENT PLAN: Increase Abilify to 5 mgs PO daily and will decrease Ativan to 0.5 mgs PO BIDP for anxiety TIME SPENT: 20 minutes. Vital Signs Vital Signs Date Time Temp Pulse Resp B/P (MAP) Pulse Ox O2 Delivery O2 Flow Rate FiO2 06/11/19 06:32 97.6 75 12 107/58 (74) 06/09/19 23:03 98 Room Air Current Medications Current Medications Medications (Trade) Dose Ordered Sig/Reba Route PRN Reason Start Time Stop Time Status Last Admin Dose Admin Acetaminophen (Tylenol Tab) 650 mg Q6HP PRN PO HEADACHE or DISCOMFORT 06/09/19 20:45 Al Hydrox/Mg Hydrox/Simethicone (Mylanta) 30 ml Q4HP PRN PO HEARTBURN/INDIGESTION 06/09/19 20:45 Aripiprazole (AbiLIFY) 2 mg DAILY PO 06/10/19 09:00 06/10/19 16:03 Levetiracetam (Keppra) 750 mg BID PO 06/10/19 09:00 06/10/19 21:37 Lorazepam (Ativan) 0.5 mg TID PO 06/09/19 21:00 06/10/19 14:35 DC 06/10/19 10:02 Lorazepam (Ativan) 0.5 mg TID PRN PO ANXIETY/AGITATION 06/10/19 14:45 Magnesium Hydroxide (Milk Of Magnesia) 30 ml DAILYPRN PRN PO CONSTIPATION 06/09/19 20:45 Nicotine (Nicoderm Cq 21mg) 1 patch DAILY TD 06/09/19 09:00 06/10/19 09:00 Olanzapine (ZyPREXA ZYDIS) 5 mg Q6HP PRN PO AGITATION 06/09/19 20:45 06/09/19 21:51 Quetiapine Fumarate (SEROquel) 50 mg QHSP PRN PO insomnia 06/09/19 20:45 06/10/19 21:37 Allergies Coded Allergies: Penicillins (Verified Allergy, Unknown, 05/22/19) MAHAD LANGLEY MD Jun 11, 2019 10:15
[2019-06-11 18:14] VITALS: BP 109/64
[2019-06-11] MEDS: QUEtiapine FUMARATE 50 MG TAB PO PRN (20:03)
[2019-06-12 06:24] VITALS: BP 109/65
--- NOTE | 2019-06-12 08:50 | MHDSPDOC ---
[facility] Discharge Summary Discharge Summary DATE OF ADMISSION: Jun 09, 2019 at 8:38 pm DATE OF DISCHARGE: Jun 12, 2019 DISCHARGE DIAGNOSES: 1. Bipolar disorder, 2. Post Traumatic Stress Disorder 3. H/O ADHD ( never been treated) REASON FOR ADMISSION: Per Dr. Beasley "Patient is a 28 -year-old , female, who, according to ED report: "Reason for Referral : Brother in law brought pt to hospital after pt. had called him because she was not feeling well after she had done 'wesley'. Pt. had made suicidal statement. Chief Complaint Pt. states that this morning she did 'wesley', felt ill and laid on the ground and called brother in law to pick her up. She states that he then took her to her sisters house where her family talked to her and then brought her to ER. She is a bit vague about exact circumstances of this morning, states she sometimes gets very emotional after using and she was feeling very emotional this morning. Pt. very vague about suicidal ideation, states she currently does not feel suicidal but shrugs her shoulders when asked if she may harm herself if she feels that way again. Pt. reports she has been using wesley for past several days along with marijuana. She reports she has used cocaine, crack and ice. Pt. reports she has been to rehab at [facility] about 5 years ago, [facility] out-pt about 4 yrs ago. She denies current out-pt services. Pt. reports she has been prescribed Ambien and Klonopin in past by PCP. Pt. did give permission for this screen writer to call her mother. Mother reports that after pt brother in law picked her up this morning, he brought her to her sisters house and family spoke with pt about getting help. Mother states that pt told her and her sister that this morning she tried to kill herself by doing wesley and attempting to do heroin but it didn't work, also stating that she didn't want to live anymore. Mother states that pt does not live with her sister as pt stated. Mother states she has ot been at sisters for past wek and they do not "know where she has been staying.." CONSULTANTS INVOLVED: none TREATMENT AND PROGRESS ON THE UNIT :Pt was admitted to [facility], seen for psychiatric assessment and started on abilify 5mg daily for mood. She was provided seroquel 50mg qhs prn insomnia. Pt found her medications beneficial and tolerated them well. She attended groups daily during her stay. Her symptoms improved with treatment. On day of discharge she denied depression, anxiety, insomnia, SI/HI, hallucinations, delusions. She was discharged home with follow-up at [facility] and [facility]. She felt safe for discharge. DISCHARGE ASSESSMENT: Pt seen and states that her mood is "good" and is looking forward to going home to her family today. States she feels embarrassed now due to the way she was acting when intoxicated and plans to never use drugs again. States she slept well last night. Feels she is tolerating his medications and they're beneficial. She is attending groups and finding them helpful. She denies depression, anxiety, insomnia, SI/HI, hallucinations, delusions. Pt feels safe to d/c home today. MENTAL STATUS EXAMINATION ON DISCHARGE: General Appearance: well groomed, appears stated age, hospital scubs/clothing Build: average Demeanor: average Eye Contact: average Activity: average Behavior: cooperative, pleasant Speech: clear, spontaneous, normal volume, reg/rate,rhythm,volume Mood: euthymic, bright Mood "good" Affect: appropriate, congruent Thought Process: logical/linear Thought Content (Delusions): none reported Thought Content (Other): Denies SI/HI, denies thought delusions and hallucinations Thought Content (Aggressive): none reported Perception (Hallucinations): none reported Perception (Other): none reported Cognition (Impairment of): none reported Cognition(Intelligence Est.): average Oriented: Awake, Alert, Oriented times three Insight: good Judgment: good Psychosis: Denies MEDICATIONS ON DISCHARGE: Abilify to 5 mg PO daily seroquel 50mg qhs prn insomnia PLAN/FOLLOWUP ARRANGEMENTS: D/c home with follow-up at [facility].. The amount of time spent in the coordination of care for this patient was approximately 30 minutes. Vital Signs/I&Os Vital Signs Date Time Temp Pulse Resp B/P (MAP) Pulse Ox O2 Delivery O2 Flow Rate FiO2 06/12/19 06:24 98.5 72 12 109/65 (80) Room Air 06/09/19 23:03 98 Medications Scheduled Aripiprazole (Abilify) 5 Mg Tablet, 5 MG PO DAILY for bipolar d/o, #10 Quetiapine Fumarate (Quetiapine Fumarate) 50 Mg Tablet, 50 MG PO QHS for bipolar d/o, #10 Allergies Coded Allergies: Penicillins (Verified Allergy, Unknown, 05/22/19) NERISSA BRINK DO Jun 12, 2019 8:50 am
[2019-06-12] MEDS ORDERED: QUET5TAB PO (08:52)
[2019-06-12] MEDS ORDERED: ABIL1TAB11 PO (08:52)
[2019-06-12] MEDS: NICOTINE 21MG/24HR 1 EA TRANSDERMAL TD SCH (09:00)
[2019-06-12] MEDS: levETIRAcetam 250MG TABLET (KEPPRA) PO SCH (10:11)
[2019-06-12] MEDS ORDERED: KEPP250T5 PO (10:39)
== END 2019-06-12 10:40 | disposition home or self-care (01) | DRG 753 ==
LOC: M ED 14:30 → M ED INP 20:38 → M PSY 21:28
PROVIDERS: ADMIT Psychiatry & Neurology Psychiatry; ATTEND Psychiatry & Neurology Psychiatry
DX: F31.9 Bipolar disorder, unspecified (principal); F43.10 Post-traumatic stress disorder, unspecified; G40.909 Epilepsy, unspecified, not intractable, without status epilepticus; D50.9 Iron deficiency anemia, unspecified; F41.9 Anxiety disorder, unspecified; F17.200 Nicotine dependence, unspecified, uncomplicated; F15.129 Other stimulant abuse with intoxication, unspecified; Z62.810 Personal history of physical and sexual abuse in childhood; Z91.410 Personal history of adult physical and sexual abuse; Z62.811 Personal history of psychological abuse in childhood; Z88.0 Allergy status to penicillin

== ENCOUNTER 2019-06-12 21:47 | Emergency (ER) | payer SELFPAY ==
[~2019-06-12] VITALS: Ht 167.6 cm; Wt 41.0 kg
[~2019-06-12 21:47] MED LIST changes: +ABIL1TAB11 PO; +KEPP250T5 PO; +QUET5TAB PO
[2019-06-12 21:58] VITALS: BP 143/100
[2019-06-12] MEDS ORDERED: NS 1,000 ML IV ONE (22:15)
--- NOTE | 2019-06-12 22:33 | REPVR ---
PROCEDURE INFORMATION: Exam: CT Head Without Contrast Exam date and time: 06/12/2019 10:25 PM Age: 28 years old Clinical indication: Pain; Headache; Additional info: Altered mental status TECHNIQUE: Imaging protocol: Computed tomography of the head without contrast. Radiation optimization: All CT scans at this facility use at least one of these dose optimization techniques: automated exposure control; mA and/or kV adjustment per patient size (includes targeted exams where dose is matched to clinical indication); or iterative reconstruction. COMPARISON: CT Head without contrast 05/22/2019 2:04 PM FINDINGS: Brain: Normal. No hemorrhage. Unremarkable white matter. No mass effect. Ventricles: Normal. No ventriculomegaly. Bones/joints: Unremarkable. No acute fracture. Sinuses: Visualized sinuses are unremarkable. No fluid levels. Mastoid air cells: Visualized mastoid air cells are well aerated. Soft tissues: Unremarkable. IMPRESSION: No acute intracranial abnormality. Electronically signed by: Francisco Javier Briseno On 06/12/2019 22:33:21 PM
[2019-06-12 22:37] LABS: BASO # 0.1 10^3/uL (0.0-0.2); EOS # 0.1 10^3/uL (0.0-0.5); EOS % 0.4 % (0.0-3.0); HEMATOCRIT 37.8 % (36.0-47.0); HEMOGLOBIN 11.6 g/dl (12.0-15.5); LYMPH # 3.6 10^3/uL (1.5-5.0); MEAN CORPUSCULAR HGB CONC 30.7 g/dl (32.0-36.5); MEAN CORPUSCULAR VOLUME 84.8 fl (80.0-96.0); MONO # 1.2 10^3/uL (0.0-0.8); MONO % 8.9 % (0.0-5.0); NEUTROPHILS # 8.7 10^3/uL (1.5-8.5); NEUTROPHILS % 63.4 % (36.0-66.0); PLATELET COUNT, AUTOMATED 367 10^3/uL (150-450); RED BLOOD COUNT 4.46 10^6/uL (4.00-5.40); WHITE BLOOD COUNT 13.8 10^3/uL (4.0-10.0)
[2019-06-12 22:40] LABS: ACETAMINOPHEN LEVEL < 2.0 UG/ML (10.0-30.0); ALBUMIN 3.6 GM/DL (3.2-5.2); ALT/SGPT 29 U/L (12-78); BILIRUBIN,DIRECT < 0.1 MG/DL (0.0-0.2); BILIRUBIN,TOTAL 0.2 MG/DL (0.2-1.0); BLOOD UREA NITROGEN 10 MG/DL (7-18); CALCIUM LEVEL 8.5 MG/DL (8.5-10.1); CARBON DIOXIDE LEVEL 27 MEQ/L (21-32); CHLORIDE LEVEL 108 MEQ/L (98-107); CPK CREATINE PHOSPHOKINASE 708 U/L (26-192); ETHYL ALCOHOL (ETHANOL) < 0.003 % (0.000-0.010); GLOMERULAR FILTRATION RATE > 60.0 (>60); GLUCOSE, FASTING 88 MG/DL (70-100); MB/CK RELATIVE INDEX 0.28 (< OR =4); POTASSIUM SERUM 3.9 MEQ/L (3.5-5.1); SALICYLATE LEVEL < 1.7 MG/DL (5.0-30.0); SODIUM LEVEL 143 MEQ/L (136-145); THYROID STIMULATING HORMONE 0.791 uIU/ML (0.358-3.740); TOTAL PROTEIN 7.3 GM/DL (6.4-8.2); TROPONIN I < 0.02 NG/ML (< 0.10)
--- NOTE | 2019-06-13 02:40 | ECGEPIP ---
[facility] - ED Test Date: 2019-06-12 Pat Name: STEPHAN SAUNDERS Department: Room: - Gender: Female Diving Judge: GENA : 1990 Requested By: TIRSO MARTIN Order Number: [id number] Reading MD: Demetris Jacobs Measurements Intervals [place] Rate: 73 P: 72 MN: 157 QRS: 65 QRSD: 92 T: 49 QT: 381 QTc: 422 Interpretive Statements SINUS RHYTHM SIMILAR TO 05/22/19 Electronically Signed on 06-13-2019 2:40:26 EDT by Demetris Jacobs
== END 2019-06-12 22:52 | disposition home or self-care (01) ==
LOC: M ED 21:47
DX: G40.301 Generalized idiopathic epilepsy and epileptic syndromes, not intractable, with status epilepticus (principal); I10 Essential (primary) hypertension; F43.10 Post-traumatic stress disorder, unspecified; F31.9 Bipolar disorder, unspecified; F19.10 Other psychoactive substance abuse, uncomplicated; F17.200 Nicotine dependence, unspecified, uncomplicated; Z88.0 Allergy status to penicillin
CPT/HCPCS: 70450; 80048; 80076; 82550; 82553; 84443; 84484; 85025; 93005; 93041; 94760; 99284; G0480

== ENCOUNTER 2019-07-19 12:05 | Emergency (ER) | payer OTHER, SELFPAY ==
[2019-07-19 12:12] VITALS: BP 132/78
== END 2019-07-19 12:36 | disposition home or self-care (01) ==
LOC: M ED 12:05
DX: F19.10 Other psychoactive substance abuse, uncomplicated (principal); F31.9 Bipolar disorder, unspecified; F17.200 Nicotine dependence, unspecified, uncomplicated; Z88.0 Allergy status to penicillin; Z79.899 Other long term (current) drug therapy

== ENCOUNTER 2019-07-23 21:11 | Emergency (ER) | payer SELFPAY ==
[~2019-07-23] VITALS: Ht 167.6 cm; Wt 59.0 kg
[2019-07-23 22:15] LABS: HEMATOCRIT 35.1 % (36.0-47.0); HEMOGLOBIN 11.2 g/dl (12.0-15.5); MEAN CORPUSCULAR HEMOGLOBIN 26.4 pg (27.0-33.0); MEAN CORPUSCULAR HGB CONC 31.9 g/dl (32.0-36.5); MEAN CORPUSCULAR VOLUME 82.6 fl (80.0-96.0); PLATELET COUNT, AUTOMATED 284 10^3/uL (150-450); RED BLOOD COUNT 4.25 10^6/uL (4.00-5.40); WHITE BLOOD COUNT 11.8 10^3/uL (4.0-10.0)
[2019-07-23 22:44] LABS: AMPHETAMINES LEVEL URINE NEGATIVE (NEGATIVE); BARBITURATES URINE NEGATIVE (NEGATIVE); BENZODIAZEPINES URINE NEGATIVE (NEGATIVE); CANNABINOIDS URINE NEGATIVE (NEGATIVE); COCAINE METABOLITE URINE POSITIVE (NEGATIVE); METHADONE URINE NEGATIVE (NEGATIVE); OPIATES URINE POSITIVE (NEGATIVE); PHENCYCLIDINE URINE NEGATIVE (NEGATIVE)
[2019-07-23 22:52] LABS: ALBUMIN 3.8 GM/DL (3.2-5.2); ALT/SGPT 73 U/L (12-78); BILIRUBIN,DIRECT 0.1 MG/DL (0.0-0.2); BILIRUBIN,TOTAL 0.3 MG/DL (0.2-1.0); BLOOD UREA NITROGEN 9 MG/DL (7-18); CALCIUM LEVEL 8.6 MG/DL (8.5-10.1); CARBON DIOXIDE LEVEL 27 MEQ/L (21-32); CHLORIDE LEVEL 104 MEQ/L (98-107); CREATININE FOR GFR 0.91 MG/DL (0.55-1.30); ETHYL ALCOHOL (ETHANOL) < 0.003 % (0.000-0.010); GLOMERULAR FILTRATION RATE > 60.0 (>60); GLUCOSE, FASTING 90 MG/DL (70-100); POTASSIUM SERUM 3.9 MEQ/L (3.5-5.1); SALICYLATE LEVEL < 1.7 MG/DL (5.0-30.0); SODIUM LEVEL 136 MEQ/L (136-145); TOTAL PROTEIN 7.2 GM/DL (6.4-8.2)
[2019-07-23 22:53] LABS: ACETAMINOPHEN LEVEL < 2.0 UG/ML (10.0-30.0)
[2019-07-23] MEDS ORDERED: LORazepam 1 MG TAB PO STA (23:24)
[2019-07-23 23:52] VITALS: BP 172/98
== END 2019-07-24 01:31 | disposition home or self-care (01) ==
LOC: M ED 21:11
DX: F19.10 Other psychoactive substance abuse, uncomplicated (principal); I10 Essential (primary) hypertension; F17.210 Nicotine dependence, cigarettes, uncomplicated; Z88.0 Allergy status to penicillin; Z79.899 Other long term (current) drug therapy
CPT/HCPCS: 36415; 80048; 80076; 80307; 84443; 85027; 99283; G0480

== ENCOUNTER 2019-08-23 09:16 | Emergency (ER) | payer OTHER, SELFPAY ==
[~2019-08-23] VITALS: Ht 167.6 cm; Wt 65.2 kg
[2019-08-23 10:19] LABS: HEMATOCRIT 34.6 % (36.0-47.0); HEMOGLOBIN 10.9 g/dl (12.0-15.5); MEAN CORPUSCULAR HEMOGLOBIN 25.8 pg (27.0-33.0); MEAN CORPUSCULAR HGB CONC 31.5 g/dl (32.0-36.5); PLATELET COUNT, AUTOMATED 349 10^3/uL (150-450); RED BLOOD COUNT 4.22 10^6/uL (4.00-5.40); WHITE BLOOD COUNT 12.2 10^3/uL (4.0-10.0)
[2019-08-23 10:37] LABS: BLOOD UREA NITROGEN 14 MG/DL (7-18); C REACTIVE PROTEIN QUANTITATIV 0.41 MG/DL (0.00-0.30); CALCIUM LEVEL 8.3 MG/DL (8.5-10.1); CARBON DIOXIDE LEVEL 26 MEQ/L (21-32); CHLORIDE LEVEL 106 MEQ/L (98-107); CREATININE FOR GFR 0.94 MG/DL (0.55-1.30); GLOMERULAR FILTRATION RATE > 60.0 (>60); GLUCOSE, FASTING 70 MG/DL (70-100); POTASSIUM SERUM 3.9 MEQ/L (3.5-5.1); SODIUM LEVEL 137 MEQ/L (136-145)
[2019-08-23 10:45] LABS: HCG, SERUM QUALITATIVE NEGATIVE (NEGATIVE)
[2019-08-23 10:51] LABS: ANISOCYTOSIS 1+; BASOPHILS 3 % (0-1); EOSINOPHILS 1 % (0-3); LYMPHOCYTES 33 % (16-44); MONOCYTES 13 % (0-5); NEUTROPHILS 50 % (28-66); PLATELET ESTIMATE NORMAL (NORMAL)
--- NOTE | 2019-08-23 10:52 | REP ---
Left lower extremity Duplex Doppler venous ultrasound: Real time compression and duplex Doppler interrogation of the left lower extremity deep venous system is performed. The left common femoral, superficial femoral and popliteal veins are fully compressible with transducer pressure and demonstrate normal spontaneous and phasic flow, without evidence of deep venous thrombosis. Impression: No evidence of deep venous thrombosis of the left lower extremity femoral popliteal venous system. Electronically Signed by Flavio Coulter MD 08/23/2019 10:43 A
[2019-08-23] MEDS ORDERED: ISOVUE-370 76% 100ML VIAL As Ordered ONE (10:55)
--- NOTE | 2019-08-23 10:58 | REP ---
ULTRASOUND LEFT CALF SOFT TISSUES: Real-time sonographic evaluation of the left calf soft tissues performed laterally at the site of pain and swelling. There is trace linear fluid along the muscle at that location only about a millimeter in thickness and extending for a length of 5 cm. No other sonographic abnormality is seen. No discrete fluid collection is seen. IMPRESSION: Trace linear fluid along the muscle superficially at the site of pain and swelling in the lateral left calf. Electronically Signed by Flavio Coulter MD 08/24/2019 11:13 A
[2019-08-23 11:14] LABS: ERYTHROCYTE SEDIMENTATION RATE 14 mm/hr (0-20)
--- NOTE | 2019-08-23 11:26 | REP ---
LEFT LOWER LEG, TWO VIEWS: There is no evidence of an acute fracture, dislocation, or intrinsic bone disease. IMPRESSION: No fracture or dislocation. Electronically Signed by Flavio Coulter MD 08/24/2019 11:14 A
--- NOTE | 2019-08-23 11:27 | REP ---
CHEST, TWO VIEWS: There is no evidence of acute infiltrate. No pleural effusion is seen. The heart is normal in size. The mediastinal silhouette is unremarkable. The visualized osseous structures are intact. IMPRESSION: No acute pulmonary disease. Electronically Signed by Flavio Coulter MD 08/24/2019 11:14 A
--- NOTE | 2019-08-23 12:25 | REP ---
CT ANGIOGRAM CHEST: TECHNIQUE: Axial contrast-enhanced images from the thoracic inlet to the upper abdomen using 100 mL Isovue-370 intravenous contrast material with multiplanar reformations. There is no CT evidence of pulmonary embolism. There is no thoracic aortic aneurysm or dissection. The heart is upper limits of normal in size. There is no mediastinal, hilar or chest wall lymphadenopathy. There is no pleural or pericardial effusion. There is no acute infiltrate in either lung. IMPRESSION: No CT evidence of pulmonary embolism or other acute finding. Electronically Signed by Flavio Coulter MD 08/24/2019 11:15 A
[2019-08-23 12:28] LABS: CK-MB VALUE MASS 9.5 NG/ML (<3.6); CPK CREATINE PHOSPHOKINASE 1374 U/L (26-192); MB/CK RELATIVE INDEX 0.69 (< OR =4); TROPONIN I < 0.02 NG/ML (< 0.10)
[2019-08-23] MEDS ORDERED: NS 1,000 ML IV ONE (12:45)
[2019-08-23 15:16] VITALS: BP 133/69
--- NOTE | 2019-08-24 21:17 | ECGEPIP ---
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
== END 2019-08-23 15:19 | disposition home or self-care (01) ==
LOC: M ED 09:16
DX: S86.212A Strain of muscle(s) and tendon(s) of anterior muscle group at lower leg level, left leg, initial encounter (principal); X58.XXXA Exposure to other specified factors, initial encounter; Y92.9 Unspecified place or not applicable; Y93.89 Activity, other specified; Y99.9 Unspecified external cause status; R74.8 Abnormal levels of other serum enzymes; F19.10 Other psychoactive substance abuse, uncomplicated; D72.829 Elevated white blood cell count, unspecified; F41.9 Anxiety disorder, unspecified; F32.9 Major depressive disorder, single episode, unspecified; G40.919 Epilepsy, unspecified, intractable, without status epilepticus; F12.10 Cannabis abuse, uncomplicated; F17.200 Nicotine dependence, unspecified, uncomplicated; Z79.899 Other long term (current) drug therapy; Z88.0 Allergy status to penicillin
CPT/HCPCS: 71046; 71275; 73590; 76882; 80048; 82550; 82553; 84703; 85025; 85379; 85652; 86140; 87040; 93005; 93971; 96360; 96361; 99284; Q9967

== ENCOUNTER 2020-02-16 06:01 | Emergency (ER) | payer OTHER, SELFPAY ==
[2020-02-16] MEDS ORDERED: HALOPERIDOL 5MG/ML VIAL (J1630 PER 1) As Ordered ONE (06:07)
[2020-02-16] MEDS ORDERED: LORazepam 2 MG/ML VIAL As Ordered ONE (06:09)
[2020-02-16] MEDS ORDERED: HALOPERIDOL 5MG/ML VIAL (J1630 PER 1) IM ONE (06:15)
[2020-02-16] MEDS ORDERED: diphenhydrAMINE 50MG/ML VIAL (J1200) IM ONE (06:15)
[2020-02-16] MEDS ORDERED: NS 1,000 ML IV ONE ×2 (06:15→08:30)
[2020-02-16] MEDS ORDERED: LORazepam 2 MG/ML VIAL IM ONE (06:15)
[2020-02-16 07:22] LABS: BASO # 0.1 10^3/uL (0.0-0.2); BASO % 0.5 % (0.0-1.0); EOS % 0.2 % (0.0-3.0); HEMATOCRIT 36.7 % (36.0-47.0); HEMOGLOBIN 11.6 g/dl (12.0-15.5); LYMPH # 1.5 10^3/uL (1.5-5.0); LYMPH % 9.4 % (24.0-44.0); MEAN CORPUSCULAR HEMOGLOBIN 26.9 pg (27.0-33.0); MEAN CORPUSCULAR HGB CONC 31.6 g/dl (32.0-36.5); MONO % 6.2 % (0.0-5.0); NEUTROPHILS % 83.3 % (36.0-66.0); PLATELET COUNT, AUTOMATED 309 10^3/uL (150-450); RED BLOOD COUNT 4.32 10^6/uL (4.00-5.40); WHITE BLOOD COUNT 15.6 10^3/uL (4.0-10.0)
[2020-02-16 07:24] LABS: HCG, SERUM QUALITATIVE NEGATIVE (NEGATIVE)
[2020-02-16 07:25] LABS: AMPHETAMINES LEVEL URINE POSITIVE (NEGATIVE); BARBITURATES URINE NEGATIVE (NEGATIVE); BENZODIAZEPINES URINE NEGATIVE (NEGATIVE); CANNABINOIDS URINE POSITIVE (NEGATIVE); COCAINE METABOLITE URINE NEGATIVE (NEGATIVE); METHADONE URINE NEGATIVE (NEGATIVE); OPIATES URINE NEGATIVE (NEGATIVE); PHENCYCLIDINE URINE NEGATIVE (NEGATIVE)
[2020-02-16 07:48] LABS: ACETAMINOPHEN LEVEL < 2.0 UG/ML (10.0-30.0); ALBUMIN 3.7 GM/DL (3.2-5.2); ALT/SGPT 49 U/L (12-78); BILIRUBIN,DIRECT 0.2 MG/DL (0.0-0.2); BILIRUBIN,TOTAL 0.4 MG/DL (0.2-1.0); BLOOD UREA NITROGEN 12 MG/DL (7-18); CALCIUM LEVEL 8.4 MG/DL (8.5-10.1); CARBON DIOXIDE LEVEL 24 MEQ/L (21-32); CHLORIDE LEVEL 105 MEQ/L (98-107); CPK CREATINE PHOSPHOKINASE 1353 U/L (26-192); CREATININE FOR GFR 0.98 MG/DL (0.55-1.30); ETHYL ALCOHOL (ETHANOL) < 0.003 % (0.000-0.010); GLOMERULAR FILTRATION RATE > 60.0 (>60); GLUCOSE, FASTING 59 MG/DL (70-100); POTASSIUM SERUM 3.6 MEQ/L (3.5-5.1); SALICYLATE LEVEL < 1.7 MG/DL (5.0-30.0); SODIUM LEVEL 138 MEQ/L (136-145); TOTAL PROTEIN 7.2 GM/DL (6.4-8.2)
[2020-02-16] MEDS: NS 1,000 ML IV SCH ×2 (11:02→12:30)
[2020-02-16 11:45] VITALS: BP 129/78
--- NOTE | 2020-02-17 06:34 | ECGEPIP ---
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
== END 2020-02-16 21:35 | disposition home or self-care (01) ==
LOC: M ED 06:01
DX: F19.10 Other psychoactive substance abuse, uncomplicated (principal); R00.0 Tachycardia, unspecified; I44.5 Left posterior fascicular block; G40.909 Epilepsy, unspecified, not intractable, without status epilepticus; Z79.899 Other long term (current) drug therapy; Z88.0 Allergy status to penicillin
CPT/HCPCS: 51701; 80048; 80076; 80307; 82550; 84443; 84703; 85025; 93005; 93041; 94760; 96360; 96361; 96372; 99285; G0480; J1200; J1630; J2060

== ENCOUNTER → 2020-04-16 | Outpatient (CLI) | payer OTHER ==
[~2020-04-16] MED LIST changes: +QUET50TA3 PO; -QUET5TAB PO
== END ==
LOC: M OUTALCOH 08:15
PROVIDERS: ATTEND Psychiatry & Neurology Psychiatry
DX: F16.20 Hallucinogen dependence, uncomplicated (principal)

== ENCOUNTER → 2020-04-29 | Outpatient (CLI) | payer OTHER | LOC: M LABSMTC 12:43 | PROVIDERS: ATTEND Family Medicine | DX: Z20.822 Contact with and (suspected) exposure to COVID-19 (principal) | CPT/HCPCS: C9803; U0003 ==

== ENCOUNTER 2020-05-15 23:46 | Emergency (ER) | payer OTHER ==
[~2020-05-15] VITALS: Ht 167.6 cm; Wt 72.7 kg
[2020-05-16] MEDS ORDERED: ONDANSETRON 4MG/2ML VIAL IV ONE (00:05)
[2020-05-16] MEDS ORDERED: NS 500 ML IV ONE (00:05)
[2020-05-16] MEDS ORDERED: LORazepam 2 MG/ML VIAL IV STA (00:05)
[2020-05-16 02:45] VITALS: BP 106/77
== END 2020-05-16 02:59 | disposition home or self-care (01) ==
LOC: M ED 23:46
DX: F19.10 Other psychoactive substance abuse, uncomplicated (principal); F17.200 Nicotine dependence, unspecified, uncomplicated; F31.89 Other bipolar disorder; Z88.0 Allergy status to penicillin
CPT/HCPCS: 96361; 96374; 96375; 99284; J2060; J2405

== ENCOUNTER 2020-06-21 16:44 | Emergency (ER) | payer OTHER ==
[~2020-06-21] VITALS: Ht 167.6 cm; Wt 70.1 kg
[2020-06-21 16:45] VITALS: BP 184/75
[2020-06-21] MEDS ORDERED: METOCLOPRAMIDE INJ 10MG/2ML VIAL (J2765 PER 1) IV ONE (17:10)
[2020-06-21] MEDS ORDERED: NS 1,000 ML IV ONE (17:10)
[2020-06-21] MEDS ORDERED: PANTOPRAZOLE 40MG VIAL (C9113 PER 1) IV ONE (17:10)
[2020-06-21 18:07] LABS: BASO # 0.1 10^3/uL (0.0-0.2); EOS # 0.1 10^3/uL (0.0-0.5); HEMATOCRIT 42.3 % (36.0-47.0); HEMOGLOBIN 13.4 g/dl (12.0-15.5); LYMPH % 34.2 % (24.0-44.0); MEAN CORPUSCULAR HEMOGLOBIN 26.2 pg (27.0-33.0); MEAN CORPUSCULAR HGB CONC 31.7 g/dl (32.0-36.5); MEAN CORPUSCULAR VOLUME 82.6 fl (80.0-96.0); MONO # 1.2 10^3/uL (0.0-0.8); MONO % 13.6 % (2.0-8.0); NEUTROPHILS # 4.3 10^3/uL (1.5-8.5); PLATELET COUNT, AUTOMATED 329 10^3/uL (150-450); RED BLOOD COUNT 5.12 10^6/uL (4.00-5.40); WHITE BLOOD COUNT 8.6 10^3/uL (4.0-10.0)
[2020-06-21 18:31] LABS: AMPHETAMINES LEVEL URINE POSITIVE (NEGATIVE); BARBITURATES URINE NEGATIVE (NEGATIVE); BENZODIAZEPINES URINE NEGATIVE (NEGATIVE); CANNABINOIDS URINE POSITIVE (NEGATIVE); COCAINE METABOLITE URINE POSITIVE (NEGATIVE); METHADONE URINE NEGATIVE (NEGATIVE); OPIATES URINE NEGATIVE (NEGATIVE); PHENCYCLIDINE URINE NEGATIVE (NEGATIVE)
[2020-06-21 18:32] LABS: ALBUMIN 4.4 GM/DL (3.2-5.2); ALT/SGPT 270 U/L (12-78); BILIRUBIN,DIRECT 0.3 MG/DL (0.0-0.2); BILIRUBIN,TOTAL 0.8 MG/DL (0.2-1.0); BLOOD UREA NITROGEN 8 MG/DL (7-18); CALCIUM LEVEL 9.6 MG/DL (8.5-10.1); CARBON DIOXIDE LEVEL 28 MEQ/L (21-32); CHLORIDE LEVEL 106 MEQ/L (98-107); CREATININE FOR GFR 1.01 MG/DL (0.55-1.30); ETHYL ALCOHOL (ETHANOL) 0.003 % (0.000-0.010); GLOMERULAR FILTRATION RATE > 60.0 (>60); GLUCOSE, FASTING 85 MG/DL (70-100); LIPASE 106 U/L (73-393); POTASSIUM SERUM 3.8 MEQ/L (3.5-5.1); SODIUM LEVEL 138 MEQ/L (136-145); TOTAL PROTEIN 7.8 GM/DL (6.4-8.2)
[2020-06-21 18:37] LABS: HCG, SERUM QUALITATIVE NEGATIVE (NEGATIVE)
[2020-06-21 20:00] LABS: CPK CREATINE PHOSPHOKINASE 1590 U/L (26-192); HEPATITIS A ANTIBODY IGM NEGATIVE (NEGATIVE); HEPATITIS B CORE ANTIBODY IGM NEGATIVE (NEGATIVE); HEPATITIS B SURFACE ANTIGEN NEGATIVE (NEGATIVE); HEPATITIS C VIRUS ABY INDEX > 11.0 INDEX (<0.8)
== END 2020-06-21 19:13 | disposition left against medical advice (07) ==
LOC: M ED 16:44
DX: F19.10 Other psychoactive substance abuse, uncomplicated (principal); Z53.9 Procedure and treatment not carried out, unspecified reason; R14.0 Abdominal distension (gaseous); F17.200 Nicotine dependence, unspecified, uncomplicated; Z88.0 Allergy status to penicillin
CPT/HCPCS: 80048; 80076; 80307; 81001; 82077; 82550; 83690; 84703; 85025; 86705; 86709; 86803; 87086; 87340; 87521; 96361; 96374; 96375; 99283; C9113; J2765

== ENCOUNTER 2021-01-05 07:09 | Emergency (ER) | payer OTHER ==
[~2021-01-05] VITALS: Ht 167.6 cm; Wt 71.0 kg
[~2021-01-05 07:09] MED LIST changes: -QUET50TA3 PO; +QUET50TA4 PO
[2021-01-05 07:10] VITALS: BP 142/97
--- OUTSIDE RECORDS SUMMARY | 2021-01-05 07:18 | CCD ---
Author Author [facility] Organization [facility] Address Unknown Phone Unavailable Support Name Relationship Address Phone UE Next Of Kin Unknown Unavailable OLIVEGARDE Next Of Kin [address] [place] [address] RANDY DAVIS Next Of [address] [place] [address] [facility] Next Of Kin [address] [place] [address] STREAM Next Of Kin [address] [place] [address] UNEMPLOYED Next Of Kin [address] [place] [address] ST Next Of Kin Unknown Unavailable IMER DAVIS Next Of Kin [address] [place] [address] Randy davis ECON [address] [place] [address] Unavailable Re-disclosure Warning The records that you are about to access may contain information from federally-assisted alcohol or drug abuse programs. If such information is present, then the following federally mandated warning applies: This information has been disclosed to you from records protected by federal confidentiality rules (42 CFR part 2). The federal rules prohibit you from making any further disclosure of this information unless further disclosure is expressly permitted by the written consent of the person to whom it pertains or as otherwise permitted by 42 CFR part 2. A general authorization for the release of medical or other information is NOT sufficient for this purpose. The Federal rules restrict any use of the information to criminally investigate or prosecute any alcohol or drug abuse patient.The records that you are about to access may contain highly sensitive health information, the redisclosure of which is protected by Article 27-F of the [place] State Public Health law. If you continue you may have access to information: Regarding HIV / AIDS; Provided by facilities licensed or operated by the [facility] Office of Mental Health; or Provided by the [facility] Office for People With Developmental Disabilities. If such information is present, then the following [facility] mandated warning applies: This information has been disclosed to you from confidential records which are protected by state law. State law prohibits you from making any further disclosure of this information without the specific written consent of the person to whom it pertains, or as otherwise permitted by law. Any unauthorized further disclosure in violation of state law may result in a fine or halfway sentence or both. A general authorization for the release of medical or other information is NOT sufficient authorization for further disc losure. Encounters Encounter Providers Location Date Indications Data Source(s ) Unknown [address] [facility], [facility] [address] 12/25/2020 12:00:00 AM EDT eCW1 ([facility]) Medications Medication Brand Name Start Date Product Form Dose Route Admi nistrative Instructions Pharmacy Instructions Status Indications Reaction Description Data Source(s) Metronidazole 500 MG Oral Tablet METRONIDAZOLE 12/11/2020 12:0 0:00 AM EDT tablet 14 TAKE ONE TABLET BY MOUTH EVERY 1 2 HOURS TAKE ONE TABLET BY MOUTH EVERY 12 HOURS SOLD: 12/11/2020 Chey steven Insurance Providers Payer name Policy type / Coverage type Policy ID Covered democrat ID Covered democrat's relationship to dobson Policy Dobson Plan Information MEDICAID [facility] [id number] 18 C [id number] [email or web address] [id number] 19 [id number] [facility] O [id number] S [id number] [facility] [id number] SP [id number] [place] Plan P [id number] O [id number] ANSI-Not a Secondary Insurance [id number] ANSI-Commercial [id number] ANSI-Commercial [id number] [facility] [id number] 18 [id number] ANSI-Commercial [id number] ANSI-Not a Secondary Insurance [id number] ANSI-Commercial [id number] ANSI-Commercial [id number] ANSI-Not a Secondary Insurance [id number] ANSI-Commercial [id number] ANSI-Commercial [id number]-[id number] ANSI-Not a Secondary Insurance [id number] ANSI-Commercial [id number] ANSI-Commercial [id number]-[id number] ANSI-Not a Secondary Insurance [id number] ANSI-Commercial [id number] ANSI-Commercial [id number] ANSI-Commercial [id number] ANSI-Not a Secondary Insurance [id number] ANSI-Not a Secondary Insurance [id number] ANSI-Commercial [id number] ANSI-Commercial [id number] ANSI-Commercial [id number] ANSI-Commercial [id number] ANSI-Commercial [id number] [facility] [id number] SP [id number] [employer] [place] [id number] SF2 [id number] [facility] [id number] SF2 [id number] SELF PAY ONLY UNAVAILABLE UNAV AILABLE [place] 303/803 [id number] SP [id number] [facility] [id number] 1 [id number] [place] [employer] [place]OSS BLUE SHIELD -O/P [id number] 18 [id number] [place] [employer] BL[employer]IELD -O/P [id number] 19 [id number] MEDICAID -O/P [id number] 18 [id number] [facility] [id number] 19 [id number] SELF PAY O [id number] S [id number] SELF PAY O UNAVAILABLE [id number] S UNA[place]ILA BLE MEDICAID [id number] S [id number] MEDICAID -O/P RAD ONLY [id number] 18 [id number] MEDICAID -O/P EMERGENCY ROOM [id number] 18 [id number] SHARMILA [id number] SP [id number] 200 [id number] SELF PAY ONLY [id number] SP [id number] Problems, Conditions, and Diagnoses No Information Surgeries/Procedures No Information Results ID Date Data Source [id number] 04/29/2020 02:00:00 PM EST [facility] Name Value Range Interpretation Code Description Data Kayleen rce(s) Supporting Document(s) SARS coronavirus 2 RNA Not Detected [facility] This lab was ordered by [facility] and reported by [facility]. Procedure Social History No Information
--- OUTSIDE RECORDS SUMMARY | 2021-01-05 07:18 | CCD ---
Author Author [employer] [facility] Organization [employer] Address Unknown Phone Unavailable Care Team Providers Care Pmo Manager Name Role Phone Catalino Russo Unavailable PROBLEMS Type Condition ICD9-CM Code IKZ74-TX Code Onset Dates Condition S tatus W/U Status Risk SNOMED Code Notes Problem Iron deficiency anemia, unspecified iron deficiency an emia type D50.9 Active confirmed 55728245 Problem Generalized anxiety disorder F41.1 Active confirme d 66935596 ALLERGIES Allergen (clinical drug ingredient) Drug/Non Drug Allergy do cumented on EMR Reaction Allergy Type Onset Date Status doxycycline Doxycycline(ND Code:[address]-53) Hives Drug Aller gy Active Penicillin (For Allergies Use Only) Hives Drug Allerg y Active metronidazole Metronidazole(ND Code:[address]-00) Hives Drug A llergy Active ENCOUNTERS from 1990 to 2020-12-26 Encounter Location Date Provider Diagnosis [address] [phone] [place] [address] Dec, Catalino Russo IMMUNIZATIONS Vaccine Route Administration Date Status Rocephin 1gm Ceftriaxone IM Intramuscular Apr 10, 2015 Admini stered TDAP Unknown Apr 15, 2016 Administered Influenza 6mo & up Fluzone IM Intramuscular Feb 08, 2017 Admi nistered Influenza 6mo & up Fluzone IM Intramuscular Dec 28, 2012 Admi nistered SOCIAL HISTORY Tobacco Use: Social History Observation Description Date Details (start date - stop date) Current Smoker Sex Assigned At : Social History Observation Description Sex Assigned At Unknown Education: Question Answer Notes Level of Education: Finished High School Language: Question Answer Notes Languages spoken: Turkmen Islam: Question Answer Notes Islam 26 Christianity Sexual Hx: Question Answer Notes Had sex in the last 12 months (vaginal, oral, or anal)? Yes Have you ever had an STD? Yes Prevention Strategies discussed: Condoms with Men only Use protection? No Other? No Herpes? No Syphilis? No GC? No Chlamydia? Yes Alcohol Screening: Question Answer Notes Did you have a drink containing alcohol in the past year? No Points 0 Interpretation Negative Tobacco Use: Question Answer Notes Are you a: current smoker Smoking Cessation Information Given 04/30/2017 Patient counseled on the dangers of tobacco use and urged to quit: 04/30/2017 How many cigarettes a day do you smoke? 6-10 Are you interested in quitting? Not ready to quit Counseled the patient on smoking effects, education provided 04/30/2017 REASON FOR REFERRAL No Information VITAL SIGNS No information MEDICATIONS Medication SIG (Take, Route, Frequency, Duration) Notes Start Da te End Date Status Escitalopram Oxalate 10 MG 1 tablet Orally Once a day for 30 day (s) Jan, Not-Taking Levaquin 750 MG 1 tablet Orally Once a day for 10 day(s) 1 Jun, Not-Taking Clindamycin HCl 300 MG 1 capsule Orally bid for 7 day(s) 1 6 Apr, 2017 Not-Taking Bactrim DS 800-160 MG 1 tablet Orally Twice a day for 3 days Jun, Not-Taking hydrOXYzine HCl 25 mg 1 tablet as needed Orally every 6 hrs for 30 day(s) Mar, Active Diflucan 150 MG 1 tablet Orally Daily for 10 day(s) Jun Not-Taking PROCEDURES No Information RESULTS No Results REASON FOR VISIT referral? MEDICAL (GENERAL) HISTORY Type Description Date Medical History Iron-deficiency anemia Medical History anxiety/depression Medical History HSV 2 Medical History abnormal pap smear, 2008-ASCUS, LGSIL NO T EXCLUDED, HPV+ Surgical History D&C after AB 02/20 Hospitalization History Child 07/19/2016 Goals Section No Information Health Concerns No Information MEDICAL EQUIPMENT No Information MENTAL STATUS No Information FUNCTIONAL STATUS No Information ASSESSMENTS No Information PLAN OF TREATMENT Next Appt Details Provider Name:Catalino Russo, 2021-10-2 5 11:00:00 AM, [address] [place] [address], , [place], [address], Insurance Providers Payer Name Payer Address Payer Phone Insured Name Patient Relati onship to Insured Coverage Start Date Coverage End Date [facility] CLAIMS DEPT [address] [facility] [phone] STEPHAN MORENO self
[2021-01-05] MEDS ORDERED: ACETAMINOPHEN 500 MG TAB PO ONE (08:10)
--- NOTE | 2021-01-05 08:32 | REP ---
INDICATION: trauma. COMPARISON: CT head without contrast, 06/12/2019 TECHNIQUE: Contiguous 5 mm thick axial projection images were obtained of the head. 2D coronal reconstructions were performed. FINDINGS: There is no evidence of acute intracranial hemorrhage or infarction. There are no abnormal intracranial masses or mass effects. Skull base and calvarium are normal. There is a scalp hematoma just to the left of midline, just posterolateral to the vertex. IMPRESSION: 1. No evidence intracranial pathology. 2. Left parietal scalp hematoma. <Electronically signed by Cayetano eMndes > 01/05/21 2883
--- NOTE | 2021-01-05 08:43 | REP ---
INDICATION: trauma. COMPARISON: None. TECHNIQUE: Contiguous 3 mm thick axial projection images were obtained of facial bones. 2D sagittal and coronal reconstructions were. FINDINGS: Frontal sinuses are clear. The frontoethmoidal recesses are patent. There is mild mucosal thickening of the ethmoidal air cells, bilaterally. The maxillary sinuses are clear. The ostiomeatal units are patent. There is mild mucosal thickening of the sphenoid sinuses. The sphenoethmoidal recess is clear. There is xavier bullosa of the middle nasal xavier bilaterally. There is mucosal thickening of the middle and inferior nasal turbinates on the right. There is minimal nasal septal deviation to the left. The temporomandibular joints are normal. The mastoid air cells and the external, middle and inner ears appear unremarkable. The orbital jane and maxillary sinus jane are intact. The zygomatic arches are intact. The nasal bones are normal. The skull base and visualized calvarium are normal. There is a left posterior parietal scalp hematoma. The intraorbital and visualized intracranial contents are normal. IMPRESSION: 1. No evidence of acute bony injury. 2. Left posterior parietal scalp hematoma. 3. Other findings as noted. <Electronically signed by Cayetano Mendes > 01/05/21 4721
--- NOTE | 2021-01-05 08:47 | REP ---
INDICATION: trauma. COMPARISON: CT cervical spine, 05/22/2019. TECHNIQUE: Contiguous 2 mm thick axial projection images were obtained there is cervical spine. 2D sagittal and coronal reconstructions were performed. FINDINGS: There is no evidence of cervical fracture or dislocation. The intervertebral disc spaces are preserved. The facet joints and posterior elements appear normal. The atlantodental joint is normal. The skull base is normal. There is no prevertebral soft tissue swelling. The visualized contents of the posterior fossa and cervical spinal canal are unremarkable. The visualized soft tissues of the neck are unremarkable. IMPRESSION: Normal CT evaluation of the cervical spine. <Electronically signed by Cayetano Mendes > 01/05/21 0822
--- OUTSIDE RECORDS SUMMARY | 2021-01-05 08:53 | CCD ---
Author Author [facility] Organization [facility] Address Unknown Phone Unavailable Support Name Relationship Address Phone UE Next Of Kin Unknown Unavailable OLIVEGARDE Next Of Kin [address] [place] [address] RANDY DAVIS Next Of Kin [address] [place] [address] [facility] Next Of Kin [address] [place] [address] STREAM Next Of Kin [address] [place] [address] UNEMPLOYED Next Of Kin [address] [place] [address] ST Next Of Kin Unknown Unavailable IMER DAVIS Next Of Kin [address] [place] [address] Randy davis ECON [address] [place] [address] Unavailable Re-disclosure Warning The records that you [...] is protected by Article 27-F of the [place] State Public Health law. If you continue you may have access to information: Regarding HIV / AIDS; Provided by facilities licensed or operated by the [facility] Office of Mental Health; or Provided by the [facility] Office for People With Developmental Disabilities. If such information is present, then the following [facility] mandated warning applies: This information has [...] law may result in a fine or retirement sentence or both. A general authorization for the release of medical or other information is NOT sufficient authorization for further disc losure. Encounters Encounter Providers Location Date Indications Data Source(s ) Unknown [address] [facility], [facility] [address] 12/25/2020 12:00:00 AM EDT eCW1 ([facility]) Medications Medication Brand Name Start Date [...] type / Coverage type Policy ID Covered republican ID Covered republican's relationship to dobson Policy Dobson Plan Information MEDICAID [facility] [id number] 18 C [id number] [facility] [id number] 19 [id number] [facility] O [id number] S [id number] [facility] [id number] SP [id number] [place] Plan P [id number] O [id number] ANSI-Not a Secondary Insurance [id number] ANSI-Commercial [id number] ANSI-Commercial [id number] [facility] [id number] 18 [id number] ANSI-Commercial [id number] ANSI-Not a Secondary Insurance [id number] ANSI-Commercial [id number] ANSI-Commercial [id number]-[id number] ANSI-Not a Secondary Insurance [id number] ANSI-Commercial [id number] ANSI-Commercial [id number]-jx10-32a1-[id number] ANSI-Not a Secondary Insurance [id number] ANSI-Commercial [id number] ANSI-Commercial [id number]-4mzp-[id number]-[id number] ANSI-Not a Secondary Insurance [id number]-[id number] ANSI-Commercial [id number]-[id number] [id number] ANSI-Commercial [id number]-[id number] ANSI-Commercial [id number]-21rr-[id number] ANSI-Not a Secondary Insurance [id number] ANSI-Not a Secondary Insurance [id number] ANSI-Commercial [id number] ANSI-Commercial [id number] ANSI-Commercial [id number] ANSI-Commercial [id number] ANSI-Commercial [id number] [facility] [id number] SP [id number] [employer] [place] [id number] SF2 [id number] [facility] [id number] SF2 [id number] SELF PAY ONLY UNAVAILABLE UNAV AILABLE [place] 303/803 [id number] SP [id number] [facility] [id number] 1 [id number] [place] BLUE CROSS BLUE SHIELD -O/P [id number] 18 [id number] [place] [employer]UE CROSS BLUE SHIELD -O/P [id number] 19 [id number] MEDICAID -O/P [id number] [facility] [id number] 19 [id number] SELF PAY O [id number] S [id number] SELF PAY O UNAVAILABLE [id number] S UNAVAILA BLE MEDICAID [id number] S [id number] MEDICAID -O/P RAD ONLY [id number] 18 [id number] MEDICAID -O/P EMERGENCY ROOM [id number] SHARMILA [id number] SP [id number] 200 [id number] SELF PAY ONLY [id number] SP [id number] Problems, Conditions, and Diagnoses No Information Surgeries/Procedures No Information Results ID Date Data Source [id number] 04/29/2020 02:00:00 PM EST [facility] Name Value Range Interpretation Code Description Data Kayleen rce(s) Supporting Document(s) SARS coronavirus 2 RNA Not Detected [facility] This lab was ordered by [facility] and reported by [facility]. Procedure Social History No Information
[2021-01-05] MEDS ORDERED: BACI500O21 TOP (08:58)
== END 2021-01-05 09:35 | disposition home or self-care (01) ==
LOC: M ED 07:09
DX: S01.01XA Laceration without foreign body of scalp, initial encounter (principal); Y04.8XXA Assault by other bodily force, initial encounter; Y92.009 Unspecified place in unspecified non-institutional (private) residence as the place of occurrence of the external cause; Y93.89 Activity, other specified; Y99.8 Other external cause status; Z88.0 Allergy status to penicillin

== ENCOUNTER 2023-05-31 23:40 | Emergency (ER) | payer OTHER ==
[~2023-05-31] VITALS: Ht 170.2 cm; Wt 68.0 kg
[~2023-05-31 23:40] MED LIST changes: +BACI500O21 TOP
[2023-06-01 02:21] VITALS: BP 108/65; TEMP 98.2; O2SAT 99
== END 2023-06-01 02:26 | disposition home or self-care (01) ==
LOC: M ED 23:40
DX: Z00.00 Encounter for general adult medical examination without abnormal findings (principal); Z88.0 Allergy status to penicillin; Z79.2 Long term (current) use of antibiotics